=== PATIENT | male | born 1955 | race Caucasian/White ===

== ENCOUNTER 2019-09-03 07:32 | Outpatient (CLI) | payer BC, SELFPAY ==
--- NOTE | ~2019-09-03 | XR_ITS ---
EXAMINATION: XR chest 2V 09/03/2019 07:59 INDICATION: Acute upper respiratory infection. Cough. PROCEDURE: 2 view chest COMPARISON: 06/30/2004 FINDINGS: The lungs are clear. The cardiomediastinal silhouette is within normal limits. There are no pleural effusions. There is no pneumothorax suspected. IMPRESSION: 1: NO ACUTE CARDIOPULMONARY DISEASE. Reviewed, dictated and finalized at location B. OR ACTUARIAL ANALYST
[2019-09-03 08:09] LABS: Basophils Percent Auto 0.7 % (0.2-1.2); Eosinophils Percent Auto 0.3 % (0-4.4); Hematocrit 46.1 % (42.0-52.0); Hemoglobin 14.7 g/dL (14.0-18.0); Immature Granulocyte Absolute 0.01 K/mm3 (0.00-0.031); Immature Granulocyte Percent A 0.2 % (0-0.5); Immature Platelet Fraction Pct 4.7 % (0.9-11.2); Lymphocytes Absolute Auto 0.67 K/mm3 (0.9-3.2); Lymphocytes Percent Auto 11.1 % (18.3-44.2); Mean Corpuscular HGB Conc 31.9 g/dl (32-36); Mean Corpuscular Hemoglobin 28.5 pg (26-34); Mean Corpuscular Volume 89.5 fl (80-100); Mean Platelet Volume 11.1 fl (7.4-10.4); Monocytes Absolute Auto 1.2 K/mm3 (0.1-0.6); Monocytes Percent Auto 19.5 % (2.6-8.5); Neutrophils Absolute Auto 4.1 K/mm3 (1.3-6.7); Neutrophils Percent Auto 68.2 % (45.5-73.1); Platelet Count Result 129 k/mm3 (150-375); Red Blood Count 5.15 M/mm3 (4.6-6.20); Red Cell Distribution Width 14.4 % (11.5-14.5); White Blood Count 6.1 K/mm3 (4.5-10.0)
[2019-09-03 08:16] LABS: Influenza Control Positive
== END 2019-09-03 07:33 | disposition home or self-care (01) ==
PROVIDERS: PCP Internal Medicine; Visit Provider Internal Medicine
DX: J06.9 Acute upper respiratory infection, unspecified (principal); R05 Cough; R69 Illness, unspecified
CPT/HCPCS: 71046; 85025; 85055; 87804

== ENCOUNTER 2019-09-06 09:51 | Outpatient (CLI) | payer BC, SELFPAY ==
[2019-09-06 10:36] LABS: Basophils Percent Auto 0.2 % (0.2-1.2); Eosinophils Percent Auto 0.2 % (0-4.4); Hematocrit 45.3 % (42.0-52.0); Hemoglobin 14.8 g/dL (14.0-18.0); Immature Granulocyte Absolute 0.08 K/mm3 (0.00-0.031); Immature Granulocyte Percent A 0.6 % (0-0.5); Lymphocytes Absolute Auto 0.75 K/mm3 (0.9-3.2); Lymphocytes Percent Auto 5.4 % (18.3-44.2); Mean Corpuscular HGB Conc 32.7 g/dl (32-36); Mean Corpuscular Hemoglobin 28.5 pg (26-34); Mean Corpuscular Volume 87.3 fl (80-100); Mean Platelet Volume 10.5 fl (7.4-10.4); Monocytes Percent Auto 6.8 % (2.6-8.5); Neutrophils Absolute Auto 12.1 K/mm3 (1.3-6.7); Neutrophils Percent Auto 86.8 % (45.5-73.1); Platelet Count Result 145 k/mm3 (150-375); Red Blood Count 5.19 M/mm3 (4.6-6.20); Red Cell Distribution Width 14.5 % (11.5-14.5); White Blood Count 13.9 K/mm3 (4.5-10.0)
[2019-09-06 10:48] LABS: Blood Urea Nitrogen 27 mg/dL (9-20); Calcium 9.4 mg/dL (8.4-10.2); Carbon Dioxide 28 mmol/L (22-30); Chloride 96 mmol/L (98-107); Estimated Glomerular Filt Rate 44; Glucose 169 mg/dL (75-110); Sodium 134 mmol/L (137-145)
[2019-09-06 10:55] LABS: Add Urine Microscopic? YES; Appearance Urine Cloudy (Clear); Bacteria Urine Trace /hpf; Bilirubin Urine Negative (Negative); Blood Urine 1+ (Negative); Color Urine Yellow (Yellow); Glucose Urine UA 3+ mg/dL (Negative); Ketones Urine 1+ mg/dL (Negative); Leukocyte Esterase Ur 2+ LEU/UL (NEGATIVE); Mucus Urine Rare /lpf; Nitrate Urine Negative (Negative); Protein Urine 2+ mg/dL (Negative); Specific Grav Ur 1.027 (1.001-1.035); Squamous Epithelial Cell Urine Rare /hpf (Few); Urobilinogen Urine Negative mg/dL (<2.0); WBC Clumps Urine Present /HPF; WBC Urine >75 /hpf (0-3)
== END 2019-09-06 09:52 | disposition home or self-care (01) ==
PROVIDERS: PCP Internal Medicine; Visit Provider Internal Medicine
DX: R30.0 Dysuria (principal); R39.15 Urgency of urination; J10.1 Influenza due to other identified influenza virus with other respiratory manifestations
CPT/HCPCS: 36415; 80048; 81001; 85025; 87077; 87086; 87088; 87186

== ENCOUNTER → 2020-06-12 10:42 | Outpatient (CLI) | payer BC, SELFPAY ==
--- NOTE | ~2020-06-12 | CT_ITS ---
EXAMINATION: CT abdomen pelvis wo/w con DATE: 06/12/2020 11:33 INDICATION: Microscopic hematuria TECHNIQUE: Computed tomography (CT) of the abdomen and pelvis was performed without and subsequently with 130 cc Omnipaque 350 intravenous contrast. Automated exposure control and iterative reconstructi on technique were employed. Exam dose: 2411.08 mGy-cm total exam DLP. COMPARISON: 04/22/2012 CT renal scan FINDINGS: The lung bases are clear. Normal heart size. No pericardial or pleural effusion. Small sliding hiatal hernia. There is high density within the dependent lumen of the gallbladder fundus, suggesting cholelithiasis , sludge and/or milk of calcium bile. Consider gallbladder ultrasound correlation. No hepatic, splenic, pancreatic or adrenal mass lesion is evident. Status post right nephrectomy. Up to 6.6 cm upper pole left renal cyst. Approximately 5 smaller left renal renal cysts. There are up to 5 left renal nonobstructing calculi, the largest measuring 7 mm. No left ureteral calculus or hydroureteronephrosis. There is an approximately 2.5 x 7 mm linear mobile calcified calculus in the dependent aspect of the urinary bladder. Moderate prostate enlargement. There is diverticulosis of the sigmoid colon; no CT evidence of diverticulitis. No bowel obstruction, bowel wall thickening, pneumatosis or intraperitoneal free air. There is calcification of the abdominal aorta but no abdominal aortic aneurysm. No intraperitoneal or retroperitoneal or pelvic mass lesion or adenopathy or ascites. Multilevel degenerative disc disease of the lumbar spine. Degenerative spurring of the lower thoracic spine. IMPRESSION: Small sliding hiatal hernia Consider gallbladder ultrasound evaluation for high density material within the dependent gallbladder lumen, possibly stones, sludge and/or milk of calcium bile Status post right nephrectomy Multiple nonobstructing left renal calculi Multiple up to 6.6 cm left renal cyst 2.5 x 7 mm linear calcified calculus in the urinary bladder Diverticulosis of the colon Reviewed, dictated and finalized at Location A. Reviewed, dictated and finalized at location A. NING ANALYST IMPRESSION: Small sliding hiatal hernia Consider gallbladder ultrasound evaluation for high density material within the dependent gallbladder lumen, possibly stones, sludge and/or milk of calcium bi le Status post right nephrectomy Multiple nonobstructing left renal calculi Multiple up to 6.6 cm left renal cyst 2.5 x 7 mm linear calcified calculus in the urinary bladder Diverticulosis of the colon
--- NOTE | ~2020-06-12 | XR_ITS ---
EXAMINATION: XR abdomen/kub 1V INDICATION: Microscopic hematuria TECHNIQUE: Supine views of the abdomen were obtained on three radiographs. COMPARISON: CT from today FINDINGS: Surgical clips in the right abdomen are consistent with prior right nephrectomy. Known ston es of the left kidney are obscured by bowel contents. No stones are identified along the expected loc ations of the ureters or bladder. Phleboliths are noted in the pelvis. IMPRESSION: 1. Known left nephrolithiasis not definitely identified. Reviewed, dictated and finalized at location A. DIRECTOR OF CREATIVE STRATEGY
[2020-06-12 11:07] LABS: Estimated Glomerular Filt Rate 51
== END ==
PROVIDERS: PCP Internal Medicine; Visit Provider Urology
DX: R31.29 Other microscopic hematuria (principal)
CPT/HCPCS: 74018; 74178; Q9967

== ENCOUNTER 2020-09-23 07:53 | Outpatient (CLI) | payer BC, SELFPAY ==
--- NOTE | ~2020-09-23 | XR_ITS ---
XR lumbar spine 2-3V 09/23/2020 08:20 Indication: Low back pain Procedure: 3 views lumbar spine Comparison: MRI lumbar spine dated 06/22/2010 Findings: There is mild dextroscoliosis centered at L2. There is disc narrowing at all lumbar levels. There is moderate multilevel facet hypertrophy. No acute fracture or traumatic malalignment. Vertebr al body heights are maintained. No evidence for spondylolisthesis. Sacral foramen are symmetric. Pedi cles intact. Impression: 1: Moderate lumbar spondylosis. Reviewed, dictated and finalized at location A. Impression: 1: Moderate lumbar spondylosis.
== END 2020-09-23 07:54 | disposition home or self-care (01) ==
PROVIDERS: PCP Internal Medicine; Visit Provider Internal Medicine
DX: M54.5 Low back pain (principal); M47.816 Spondylosis without myelopathy or radiculopathy, lumbar region; M41.9 Scoliosis, unspecified
CPT/HCPCS: 72100

== ENCOUNTER 2020-11-01 11:35 | Day surgery (SDC) | payer BC, SELFPAY ==
[2020-11-01] VITALS (10 sets, daily range): BP systolic 110–173; BP diastolic 60–89; PULSE 76–103; RESP 16–18; TEMP 36.3–36.6; O2SAT 94–98
--- NOTE | ~2020-11-01 | CT_ITS ---
EXAMINATION: CT abdomen pelvis wo con DATE: 11/01/2020 12:38 INDICATION: Left flank pain TECHNIQUE: Computed tomography (CT) of the abdomen and pelvis was performed without intravenous contr ast. Automated exposure control and iterative reconstruction technique were employed. Exam dose: 526 .40 mGy-cm total exam DLP. COMPARISON: 06/12/2020 CT abdomen pelvis FINDINGS: The lung bases are clear. Normal heart size. Coronary artery calcifications. No pericardial or pleural effusion. Up to 2.6 x 3.6 cm hyperdense area at gallbladder fundus; differential diagnosis includes gallbladder mass, gallstone. Gallbladder ultrasound examination is recommended for correlation. No hepatic, splenic or pancreatic space-occupying mass lesion. No bile duct or pancreatic duct dilata tion or pancreatic calcification. Normal morphology of the adrenal glands. Status post right nephrectomy. Up to 5.9 cm upper pole left renal cysts. There are several stones at the left ureteropelvic junction (up to 7.6 mm dimension) and very proxima l left ureter (4.6 mm), with moderate left hydronephrosis. There are 2 residual stones in the lower pole of left kidney, one punctate, the other measuring up to approximately 5 mm. There is moderate diffuse thickening of the urinary bladder wall. There is prostate enlargement. There is atherosclerotic calcification of the abdominal aorta but no aneurysm. No intraperitoneal or retroperitoneal or pelvic mass lesion or adenopathy or ascites. Mild diverticulosis of the sigmoid colon; no CT evidence of diverticulitis. No bowel obstruction, bow el wall thickening, pneumatosis or intraperitoneal free air. IMPRESSION: Left renal pelvic and very proximal left ureteral calculi, with associated left hydronep hrosis Lower pole nonobstructive left nephrolithiasis Left renal cysts Chronic nonspecific hyperdensity at the gallbladder fundus, also present on 06/12/2020; consider gall bladder ultrasound examination Mild sigmoid colon diverticulosis; no CT evidence of diverticulitis Reviewed, dictated and finalized at [facility]. Reviewed, dictated and finalized at [facility]. IMPRESSION: Left renal pelvic and very proximal left ureteral calculi, with as sociated left hydronephrosis Lower pole nonobstructive left nephrolithiasis Left renal cysts Chronic nonspecific hyperdensity at the gallbladder fundus, also present on 04/2020; consider gallbladder ultrasound examination Mild sigmoid colon diverticulosis; no CT evidence of diverticulitis
--- NOTE | ~2020-11-01 | XR_ITS ---
XR abdomen/kub 1V DATE: 11/01/2020 12:44 INDICATION: Left flank pain TECHNIQUE: AP projection, 2 views COMPARISON: 11/01/2020 CT abdomen pelvis noncontrast examination FINDINGS: The multiple stones in the left renal pelvis and very proximal left ureter as well as lower pole of left kidney are radiographically occult. Postsurgical changes of the right abdomen. No evidence of bowel obstruction. No visceromegaly is evident. IMPRESSION: Radiographically occult stones at lower pole left kidney as well as left renal pelvis and very proximal left ureter Reviewed, dictated and finalized at [facility]. Reviewed, dictated and finalized at [facility].
--- NOTE | ~2020-11-01 | XR_ITS ---
EXAMINATION: XR retrograde pyelo w/stent LT DATE: 11/01/2020 16:39 INDICATION: Left flank pain requiring left ureteral stent placement. TECHNIQUE: 5 fluoroscopic images of the abdomen and pelvis were obtained during procedure performed izabela Maldonado. Radiologist was not present for the imaging or procedure. The amount of fluoroscopy olimpia e used during this procedure was 0.4 minutes. 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 Subsequent images demonstrate retrogra de contrast injection into the left kidney and placement of a left internal ureteral stent with loops formed in the bladder and left renal pelvis. Cholecystectomy clips in right upper quadrant. A couple likely dropped clips in the right lower quadrant and left hemipelvis. IMPRESSION: 1. Proximal left ureteral stones. 2. Placement of a left internal ureteral stent in expected position with loops formed in the left rainer al pelvis and in the bladder. Reviewed, dictated and finalized at location [facility]. IMPRESSION: 1. Proximal left ureteral stones. 2. Placement of a left internal ureteral stent in expected position with loops formed in the left renal pelvis and in the bladder.
--- NOTE | 2020-11-01 11:58 | ED.BACK ---
HPI - Back Pain/Injury General Chief Complaint: Abdominal Pain Stated Complaint: poss kidney stone Time Seen by Provider: 11/01/20 11:52 Source: patient and RN notes reviewed Mode of arrival: ambulatory Limitations: no limitations History of Present Illness HPI Narrative: This is a 65 year old male with history of DM, kidney stones who presents for evaluation of left lower back pain. This pain started 2 hours ago and it has been constant. He describes it as dull aching pain. He denies pain radiating. It is associated with nausea and vomiting. He thinks it may be a kidney stone. He denies fever or chills . He also denies urinary symptoms. He took Tylenol 1 g an hour ago without relief of his pain. Pain is currently 5/10. Pertinent past history: kidney stones Exacerbating factors: deep breaths Relieving factors: none Treatments prior to arrival: acetaminophen Related Data Allergies Allergy/AdvReac Type Severity Reaction Status Date / Time No Known Allergies Allergy Verified 11/01/20 11:47 Review of Systems Review of Systems: All systems reviewed & are unremarkable except as noted in HPI and below PMFSH Past Medical History Medical History Benign essential hypertension BMI 33.0-33.9,adult BMI 34.0-34.9,adult CKD (chronic kidney disease) Controlled diabetes mellitus with hyperglycemia, with long-term current use of insulin Cough Dehydration Dysuria Elevated PSA Elevated serum creatinine Encounter for long-term current use of medication Encounter for routine adult health examination without abnormal findings Encounter for special screening examination for neoplasm of prostate Family history of prostate cancer HTN (hypertension) Hx of colonic polyps Hx of mitral valve prolapse Hx of unilateral nephrectomy Hyperlipidemia Hypothyroidism (acquired) Influenza A Itchy skin Low back pain On intermediate designer drug therapy URI (upper respiratory infection) Urinary urgency Vitamin D deficiency Weight loss, intentional Surgical History Surgical History H/O kidney removal H/O right nephrectomy Family History Family History Mother Diabetes mellitus Family history of diabetes mellitus in first degree relative Sibling Malignant neoplasm of prostate Other Family history of cardiovascular disease Social History Social History Smoking status: Never smoker Alcohol intake: never Exam Const: General: no acute distress and alert Orientation/consciousness: patient oriented x3 Eyes: EOM: EOMs intact bilaterally Resp: Effort & Inspection: normal respiratory effort and no retractions Auscultation: clear to auscultation bilaterally Cardio: Rate: regular rate Rhythm: regular rhythm Heart sounds: no murmurs GI: GI Palp: Yes Soft to palpation, Yes Tenderness to palpation present (GI) (LL flank) and No Guarding due to palpation present (GI) Auscultation: normal bowel sounds : General: Yes no CVA tenderness Skin: General skin exam: normal color Rashes: no rashes Neuro: General: patient oriented x3, moves all extremities and CN's II-XI intact bilaterally Course Consultations Consultation #1: I Discussed case with Dr. Mckoy. HE states he will likely take patient to OR later for stent placement due to only having 1 kidney Date: 11/01/20 Time: 14:16 Consultation #2: I discussed with shane stinson who will admit to hospitalist for observation Date: 11/01/20 Time: 14:36 Vital Signs Vital signs: Vital Signs Temperature 97.8 F 11/01/20 11:43 Pulse Rate 98 11/01/20 11:43 Respiratory Rate 18 11/01/20 11:43 Blood Pressure 173/89 H 11/01/20 11:43 Pulse Oximetry 96 11/01/20 11:43 Temperature 97.4 F L 11/01/20 16:43 Pulse Rate 76 11/01/20 17:47 Respiratory Rate
[2020-11-01 12:13] LABS: Basophils Absolute Auto 0.1 K/mm3 (0.0-0.1); Basophils Percent Auto 0.7 % (0.2-1.2); Eosinophils Absolute Auto 0.2 K/mm3 (0-0.3); Eosinophils Percent Auto 1.9 % (0-4.4); Hematocrit 41.7 % (42.0-52.0); Hemoglobin 14.3 g/dL (14.0-18.0); Immature Granulocyte Absolute 0.04 K/mm3 (0.00-0.031); Immature Granulocyte Percent A 0.4 % (0-0.5); Lymphocytes Absolute Auto 1.37 K/mm3 (0.9-3.2); Lymphocytes Percent Auto 13.3 % (18.3-44.2); Mean Corpuscular HGB Conc 34.3 g/dl (32-36); Mean Corpuscular Hemoglobin 29.6 pg (26-34); Mean Corpuscular Volume 86.3 fl (80-100); Mean Platelet Volume 11.2 fl (7.4-10.4); Monocytes Absolute Auto 0.9 K/mm3 (0.1-0.6); Monocytes Percent Auto 8.6 % (2.6-8.5); Neutrophils Absolute Auto 7.7 K/mm3 (1.3-6.7); Neutrophils Percent Auto 75.1 % (45.5-73.1); Platelet Count Result 156 k/mm3 (150-375); Red Blood Count 4.83 M/mm3 (4.6-6.20); Red Cell Distribution Width 12.8 % (11.5-14.5); White Blood Count 10.3 K/mm3 (4.5-10.0)
[2020-11-01 12:21] LABS: Alanine Aminotransferase 27 U/L (4-50); Albumin Level 4.2 g/dL (3.5-5.1); Alkaline Phosphatase 75 U/L (38-126); Anion Gap 6 mmol/L (8-16); Aspartate Amino Transferase 34 U/L (17-59); Bilirubin,Total 0.8 mg/dL (0.2-1.3); Blood Urea Nitrogen 25 mg/dL (9-20); Calcium 9.3 mg/dL (8.4-10.2); Carbon Dioxide 26 mmol/L (22-30); Chloride 106 mmol/L (98-107); Estimated CRCL calculation 54 ml/min; Estimated Glomerular Filt Rate 47; Glucose 159 mg/dL (75-110); Lipase 361 U/L (23-300); Potassium 4.1 mmol/L (3.4-5.0); Sodium 138 mmol/L (137-145)
[2020-11-01] MEDS: ONDANSETRON INJ 4 MG/2 ML VIAL IV PUSH (12:21)
[2020-11-01] MEDS: HYDROmorphone HCL INJ (*CRX) 1 MG/ML SYR 0.5 MG IV PUSH (12:21)
[2020-11-01 12:24] LABS: Add Urine Microscopic? YES; Appearance Urine Cloudy (Clear); Bilirubin Urine Negative (Negative); Blood Urine 3+ (Negative); Color Urine Yellow (Yellow); Glucose Urine UA Negative (Negative); Ketones Urine Negative (Negative); Leukocyte Esterase Ur Trace LEU/UL (Negative); Mucus Urine Rare /lpf; Nitrate Urine Negative (Negative); Protein Urine 1+ mg/dL (Negative); Urobilinogen Urine Negative mg/dL (<2.0)
--- NOTE | 2020-11-01 14:39 | WPDANESEPP ---
Anes - Eval Pre Procedure Procedure: Cystoscopy Date/Time: 11/01/20 14:39 Pre Op Diagnosis: poss kidney stone Patient Data Age: 65 Gender: M Height: 1.78 m Weight: 108 kg Last Vital Signs Temp 36.6 C 11/01/20 11:43 Pulse 100 11/01/20 13:43 Resp 18 11/01/20 13:43 BP 131/79 11/01/20 13:43 Pulse Ox 94 11/01/20 13:43 Allergies Allergy/AdvReac Type Severity Reaction Status Date / Time No Known Allergies Allergy Verified 11/01/20 11:47 Home Medications Medication Instructions Recorded Confirmed Type rosuvastatin 40 mg tablet 40 mg PO DAILY #90 tablet 12/24/19 09/23/20 Rx levothyroxine 100 mcg tablet 100 mcg PO QAM #90 tablet 01/14/20 09/23/20 Rx flash glucose sensor #6 each 02/04/20 09/23/20 Rx losartan 100 mg tablet 100 mg PO DAILY #90 tablet 02/18/20 09/23/20 Rx pen needle, diabetic 32 gauge x #100 ea 06/16/20 09/23/20 Rx /32 metformin 1,000 mg tablet See Rx Instructions .ROUTE 09/22/20 09/23/20 Rx .COMPLEX #180 tablet semaglutide 1 mg/dose (2 mg/1.5 1 mg SUBCUT WEEKLY #9 ml 10/08/20 Rx mL) subcutaneous pen injector insulin glargine U-300 conc 300 35 unit SUB-Q QPM #8 syr 10/14/20 Rx unit/mL (1.5 mL) subcutaneous pen Laboratory Tests 11/01/20 11/01/20 11/01/20 12:04 12:04 12:12 WBC 10.3 K/mm3 H K/mm3 (4.5-10.0) RBC 4.83 M/mm3 M/mm3 (4.6-6.20) Hgb 14.3 g/dL g/dL (14.0-18.0) Hct 41.7 % L % (42.0-52.0) MCV 86.3 fl fl (80-100) MCH 29.6 pg pg (26-34) MCHC 34.3 g/dl g/dl (32-36) RDW 12.8 % % (11.5-14.5) Plt Count 156 k/mm3 k/mm3 (150-375) MPV 11.2 fl H fl (7.4-10.4) Immature Gran % (Auto) 0.4 % % (0-0.5) Neut % (Auto) 75.1 % H % (45.5-73.1) Lymph % (Auto) 13.3 % L % (18.3-44.2) [place] % (Auto) 8.6 % H % (2.6-8.5) Eos % (Auto) 1.9 % % (0-4.4) Baso % (Auto) 0.7 % % (0.2-1.2) Lymph # (Auto) 1.37 K/mm3 K/mm3 (0.9-3.2) [place] # (Auto) 0.9 K/mm3 H K/mm3 (0.1-0.6) Eos # (Auto) 0.2 K/mm3 K/mm3 (0-0.3) Baso # (Auto) 0.1 K/mm3 K/mm3 (0.0-0.1) Abs Immat Gran (auto) 0.04 K/mm3 H K/mm3 (0.00-0.031) Absolute Neuts (auto) 7.7 K/mm3 H K/mm3 (1.3-6.7) Absolute Nucleated RBC 0.0 K/mm3 K/mm3 (0.0-0.012) Nucleated RBC % 0.0 % % (0.0-0.2) Sodium 138 mmol/L mmol/L (137-145) Potassium 4.1 mmol/L mmol/L (3.4-5.0) Chloride 106 mmol/L mmol/L (98-107) Carbon Dioxide 26 mmol/L mmol/L (22-30) Anion Gap 6 mmol/L L mmol/L (8-16) BUN 25 mg/dL H mg/dL (9-20) Creatinine 1.50 mg/dL H mg/dL (0.7-1.3) Estim Creat Clear Calc 54 ml/min ml/min Estimated GFR 47 L (59 - ) Glucose 159 mg/dL H mg/dL (75-110) Calcium 9.3 mg/dL mg/dL (8.4-10.2) Total Bilirubin 0.8 mg/dL mg/dL (0.2-1.3) AST 34 U/L U/L (17-59) ALT 27 U/L U/L (4-50) Alkaline Phosphatase 75 U/L U/L (38-126) Total Protein 7.0 g/dL g/dL (6.3-8.2) Albumin 4.2 g/dL g/dL (3.5-5.1) Lipase 361 U/L H U/L (23-300) Urine Color Yellow (Yellow) Urine Appearance Cloudy H (Clear) Urine pH 6.0 (5.0-9.0) Ur Specific [place] 1.010 (1.001-1.035) Urine Protein 1+ mg/dL H mg/dL (Negative) Urine Glucose (UA) Negative mg/dL mg/dL (Negative) Urine Ketones Negative mg/dL mg/dL (Negative) Ur Blood (Man) 3+ H (Negative) Urine Nitrate Negative (Negative) Urine Bilirubin Negative (Negative) Urine Urobilinogen Negative mg/dL mg/dL (<2.0) Leukocyte Esterase Rfl Trace SHAMIKA/UL H SHAMIKA/UL (Negative) Urine RBC 11-20 /hpf H /hpf (0-2) Urine WBC
[2020-11-01] MEDS: LACTATED RINGERS 1,000 ML 125 ML IV CONT (15:33)
--- NOTE | 2020-11-01 15:55 | WPDANESEPPF ---
Anes - Initial Pre Proc Eval Procedure: Operation Date: 11/01/20 16:00 Proposed Procedures p Cysto, RPG, Stone Ext, Stent Placement - Ray Maldonado MD Date/Time: 11/01/20 15:55 Surgeon: Ray Maldonado MD Pre Op Diagnosis: poss kidney stone Patient Data Age: 65 Gender: M Height: 1.78 m Weight: 108 kg Last Vital Signs Temp 36.6 C 11/01/20 11:43 Pulse 103 H 11/01/20 15:41 Resp 16 11/01/20 15:41 BP 132/74 11/01/20 15:41 Pulse Ox 96 11/01/20 15:41 Allergies Allergy/AdvReac Type Severity Reaction Status Date / Time No Known Allergies Allergy Verified 11/01/20 11:47 Home Medications Medication Instructions Recorded Confirmed Type rosuvastatin 40 mg tablet 40 mg PO DAILY #90 tablet 12/24/19 09/23/20 Rx levothyroxine 100 mcg tablet 100 mcg PO QAM #90 tablet 01/14/20 09/23/20 Rx flash glucose sensor #6 each 02/04/20 09/23/20 Rx losartan 100 mg tablet 100 mg PO DAILY #90 tablet 02/18/20 09/23/20 Rx pen needle, diabetic 32 gauge x #100 ea 06/16/20 09/23/20 Rx /32 metformin 1,000 mg tablet See Rx Instructions .ROUTE 09/22/20 09/23/20 Rx .COMPLEX #180 tablet semaglutide 1 mg/dose (2 mg/1.5 1 mg SUBCUT WEEKLY #9 ml 10/08/20 Rx mL) subcutaneous pen injector insulin glargine U-300 conc 300 35 unit SUB-Q QPM #8 syr 10/14/20 Rx unit/mL (1.5 mL) subcutaneous pen Laboratory Tests 11/01/20 11/01/20 11/01/20 12:04 12:04 12:12 WBC 10.3 K/mm3 H K/mm3 (4.5-10.0) RBC 4.83 M/mm3 M/mm3 (4.6-6.20) Hgb 14.3 g/dL g/dL (14.0-18.0) Hct 41.7 % L % (42.0-52.0) MCV 86.3 fl fl (80-100) MCH 29.6 pg pg (26-34) MCHC 34.3 g/dl g/dl (32-36) RDW 12.8 % % (11.5-14.5) Plt Count 156 k/mm3 k/mm3 (150-375) MPV 11.2 fl H fl (7.4-10.4) Immature Gran % (Auto) 0.4 % % (0-0.5) Neut % (Auto) 75.1 % H % (45.5-73.1) Lymph % (Auto) 13.3 % L % (18.3-44.2) [place] % (Auto) 8.6 % H % (2.6-8.5) Eos % (Auto) 1.9 % % (0-4.4) Baso % (Auto) 0.7 % % (0.2-1.2) Lymph # (Auto) 1.37 K/mm3 K/mm3 (0.9-3.2) [place] # (Auto) 0.9 K/mm3 H K/mm3 (0.1-0.6) Eos # (Auto) 0.2 K/mm3 K/mm3 (0-0.3) Baso # (Auto) 0.1 K/mm3 K/mm3 (0.0-0.1) Abs Immat Gran (auto) 0.04 K/mm3 H K/mm3 (0.00-0.031) Absolute Neuts (auto) 7.7 K/mm3 H K/mm3 (1.3-6.7) Absolute Nucleated RBC 0.0 K/mm3 K/mm3 (0.0-0.012) Nucleated RBC % 0.0 % % (0.0-0.2) Sodium 138 mmol/L mmol/L (137-145) Potassium 4.1 mmol/L mmol/L (3.4-5.0) Chloride 106 mmol/L mmol/L (98-107) Carbon Dioxide 26 mmol/L mmol/L (22-30) Anion Gap 6 mmol/L L mmol/L (8-16) BUN 25 mg/dL H mg/dL (9-20) Creatinine 1.50 mg/dL H mg/dL (0.7-1.3) Estim Creat Clear Calc 54 ml/min ml/min Estimated GFR 47 L (59 - ) Glucose 159 mg/dL H mg/dL (75-110) Calcium 9.3 mg/dL mg/dL (8.4-10.2) Total Bilirubin 0.8 mg/dL mg/dL (0.2-1.3) AST 34 U/L U/L (17-59) ALT 27 U/L U/L (4-50) Alkaline Phosphatase 75 U/L U/L (38-126) Total Protein 7.0 g/dL g/dL (6.3-8.2) Albumin 4.2 g/dL g/dL (3.5-5.1) Lipase 361 U/L H U/L (23-300) Urine Color Yellow (Yellow) Urine Appearance Cloudy H (Clear) Urine pH 6.0 (5.0-9.0) Ur Specific [place] 1.010 (1.001-1.035) Urine Protein 1+ mg/dL H mg/dL (Negative) Urine Glucose (UA) Negative mg/dL mg/dL (Negative) Urine Ketones Negative mg/dL mg/dL (Negative) Ur Blood (Man) 3+ H (Negative) Urine Nitrate Negative (Negative) Urine Bilirubin Negative (Negative) Urine Urobilinogen Negative mg/dL m
[2020-11-01] MEDS: LACTATED RINGERS 1,000 ML 30 ML IV CONT (16:00)
--- NOTE | 2020-11-01 16:08 | WPDURCON ---
Assessment and Plan Additional Plan left ureteral stone in a solitary kidney system He will need a left ureteral stent. We discussed the risks of the stent colic and infection. He will receive a dose of antibiotics. He will have follow up with Dr. Anderson for definitive stone management. Urology Consult Note HPI Date Seen: 11/01/20 Requesting Physician: Ray Maldonado MD Primary Care Provider: Rafael Guajardo MD Consult Narrative Narrative: Nico Aggarwal is a 65 year old male with a left ureteral stone and solitary kidney. Review of Systems Review of Systems: All systems reviewed & are unremarkable except as noted in HPI and below PMFSH Past Medical History Medical History Benign essential hypertension BMI 33.0-33.9,adult BMI 34.0-34.9,adult CKD (chronic kidney disease) Controlled diabetes mellitus with hyperglycemia, with long-term current use of insulin Cough Dehydration Dysuria Elevated PSA Elevated serum creatinine Encounter for long-term current use of medication Encounter for routine adult health examination without abnormal findings Encounter for special screening examination for neoplasm of prostate Family history of prostate cancer HTN (hypertension) Hx of colonic polyps Hx of mitral valve prolapse Hx of unilateral nephrectomy Hyperlipidemia Hypothyroidism (acquired) Influenza A Itchy skin Low back pain On fpc drug therapy URI (upper respiratory infection) Urinary urgency Vitamin D deficiency Weight loss, intentional Surgical History Surgical History H/O kidney removal H/O right nephrectomy Family History Family History Mother Diabetes mellitus Family history of diabetes mellitus in first degree relative Sibling Malignant neoplasm of prostate Other Family history of cardiovascular disease Social History Social History Smoking status: Never smoker Alcohol intake: never Meds Home Medications and Allergies Home Medications Medication Instructions Recorded Confirmed Type rosuvastatin 40 mg tablet 40 mg PO DAILY #90 tablet 12/24/19 09/23/20 Rx levothyroxine 100 mcg tablet 100 mcg PO QAM #90 tablet 01/14/20 09/23/20 Rx flash glucose sensor #6 each 02/04/20 09/23/20 Rx losartan 100 mg tablet 100 mg PO DAILY #90 tablet 02/18/20 09/23/20 Rx pen needle, diabetic 32 gauge x #100 ea 06/16/20 09/23/20 Rx metformin 1,000 mg tablet See Rx Instructions .ROUTE 09/22/20 09/23/20 Rx .COMPLEX #180 tablet semaglutide 1 mg/dose (2 mg/1.5 1 mg SUBCUT WEEKLY #9 ml 10/08/20 Rx mL) subcutaneous pen injector insulin glargine U-300 conc 300 35 unit SUB-Q QPM #8 syr 10/14/20 Rx unit/mL (1.5 mL) subcutaneous pen Allergies Allergy/AdvReac Type Severity Reaction Status Date / Time No Known Allergies Allergy Verified 11/01/20 11:47 Vital Signs Vital Signs - 24 hr 11/01/20 11:43 11/01/20 12:44 11/01/20 13:43 Temperature 36.6 C Pulse Rate 98 94 100 Respiratory Rate 18 18 18 Blood Pressure 173/89 H 131/79 Pulse Oximetry 96 96 94 11/01/20 15:07 11/01/20 15:41 Temperature Pulse Rate 103 H 103 H Respiratory Rate 16 16 Blood Pressure 132/74 132/74 Pulse Oximetry 96 96 Exam Const: General: cooperative and healthy appearing HENMT: Ears: hearing grossly normal bilaterally Eyes: General: appearance normal, both eyes and all related structures Neck: Neck: normal visual inspection Resp: Effort & Inspection: normal respiratory effort and able to speak in complete sentences GI: Inspection: normal to inspection Skin: General skin exam: normal color and no rashes or lesions noted Neuro: General: oriented to person, oriented to place and oriented to time Psych: Appearance: grossly normal and well kempt Results Labs
--- NOTE | 2020-11-01 16:19 | WPDANESEFPP ---
Anes - Eval Final PreProcedure Day of Procedure 11/01/20 16:19 Patient weight: obese Heart: regular rate and rhythm Lungs: clear to auscultation and normal air movement Airway: Mallampati scale class II Neurological: alert and oriented Last oral intake: >/= 8 hours ASA classification: III Emergent: no Anesthetic plan: proceed Anesthesia type and monitoring: general GIVS and LMA Informed Consent: The patient's anesthetic plan and its attendant risks and benefits were discussed with the patient/family/POA. Questions were solicited and answers provided to the satisfaction of the patient/family/POA.
[2020-11-01] MEDS: ceFAZolin SODIUM 1 GM VIAL 2 GM IV PUSH (16:22)
--- NOTE | 2020-11-01 16:43 | P.OP_ITS ---
Procedure Note - Detailed Date of procedure: 11/01/20 Pre-op diagnosis: poss kidney stone left ureter stone Post-op diagnosis: same Procedure performed: cystoscopy with left retrograde pyelogram and left ureteral stent placement Description of procedure: The patient was brought to the operating room in stable condition. He was placed under anesthesia. He received antibiotic prophylaxis with Ancef. He was placed in lithotomy position. He was prepped and draped in sterile fashion. A 22 aust[place]ian cystoscope was placed through the urethra into the bladder. The bladder was examined. No abnormality was seen. The left ureter orifice was visualized and cannulated with a Mendoza wire. An open ended catheter was placed. A retrograde pyelogram was performed. There was hydronephrosis present. The wire was placed into the upper pole of the kidney. The stent was placed over the wire. A 6 [place] variable length stent was placed. A good curl was noted in the bladder under direct vision and in the renal pelvis under fluoroscopy. The bladder was drained. Local anesthesia was placed. Final x-ray images were taken showing the stent in correct position. He was then brought to the recovery room in stable condition. Implants: 6 [place] variable length ureter stent Anesthesia: MAC Surgeon: Ray Maldonado MD Estimated blood loss (mL): 0 Drains: No Packing: No Pathology: none sent Complications: No immediate complications Condition: stable Disposition: PACU Findings: Good placement of stent
[2020-11-01 17:16] LABS: Glucose Point of Care 83 (65-105)
--- NOTE | 2020-11-01 17:58 | SUR.PHASEII ---
1755- Pt up to restroom to void and get dressed. Denies pain or nausea. 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 Discharge instructions given to pt and home meds reviewed. all questions answered.
--- NOTE | 2020-11-01 18:25 | PM.EVENT ---
Event Note Event Note Event Note: Patient was initially going to be admitted to the hospitalist service overnight for observation, with surgery to be done the following morning as he apparently ate breakfast today. Ultimately he was able to go to the OR this afternoon for cystoscopy and stent placement and was discharged by the urologist from PACU. He was not seen or evaluated by myself or the hospitalist service.
== END 2020-11-01 17:55 | disposition home or self-care (01) ==
LOC: ANHED 14:38 → ANHSURGERY 15:05
PROVIDERS: Emergency Provider General Practice; PCP Internal Medicine; Visit Provider Urology
PROC: (CPT 52352; principal; 2020-11-01 16:00)
DX: N13.2 Hydronephrosis with renal and ureteral calculous obstruction (principal); Z90.5 Acquired absence of kidney; E11.22 Type 2 diabetes mellitus with diabetic chronic kidney disease; I12.9 Hypertensive chronic kidney disease with stage 1 through stage 4 chronic kidney disease, or unspecified chronic kidney disease; N18.9 Chronic kidney disease, unspecified; Z79.4 Long term (current) use of insulin; E78.5 Hyperlipidemia, unspecified; E03.9 Hypothyroidism, unspecified; E66.9 Obesity, unspecified; Z68.34 Body mass index [BMI] 34.0-34.9, adult
CPT/HCPCS: 52332; 36415; 74018; 74176; 74420; 80053; 81001; 82948; 83690; 85025; 87086; 96374; 96375; 99285; A9270; C1758; C1769; C2617; J0690; J1170; J2405; J2704; J3010; J7120; Q9966

== ENCOUNTER 2020-11-13 09:29 | Outpatient (CLI) | payer BC, SELFPAY ==
--- NOTE | ~2020-11-13 | XR_ITS ---
EXAMINATION: XR abdomen/kub 1V EXAM DATE: 11/13/2020 09:46 INDICATION: Left ureteral stone, left-sided flank pain. Right nephrectomy. TECHNIQUE: Frontal projection of the upper abdomen, frontal projection lower abdomen/pelvis for inter pretation. Comparison is made to prior examination from 11/01/2020. FINDINGS: There is a left-sided double-J ureteral stent in position. No suspicious soft tissue calci fications identified. Surgical clips from right nephrectomy. Mild lumbar dextroscoliosis. Expected am ount of colonic stool. Nonobstructive bowel gas pattern. Lung bases unremarkable. IMPRESSION: Left ureteral stent in position. Reviewed, dictated and finalized at location [facility].
== END 2020-11-13 09:30 | disposition home or self-care (01) ==
LOC: ANHIMG 09:33
PROVIDERS: PCP Internal Medicine; Visit Provider Urology
DX: N20.1 Calculus of ureter (principal); Z96.0 Presence of urogenital implants
CPT/HCPCS: 74018

== ENCOUNTER → 2020-11-21 07:58 | Outpatient (CLI) | payer BC, SELFPAY ==
--- NOTE | ~2020-11-21 | US_ITS ---
US abdomen limited DATE: 11/21/2020 08:35 INDICATION: Congenital malformation of the gallbladder TECHNIQUE: Real-time imaging of liver, pancreas, gallbladder areas COMPARISON: 11/01/[address] abdomen pelvis FINDINGS: There is hepatic steatosis. No hepatic space-occupying mass lesion is evident. Normal hepat opedal portal venous flow direction. The pancreas is largely obscured by overlying bowel gas. The common bile duct measures 5 mm, within normal range. There is sludge in the dependent aspect of the gallbladder no gallbladder wall thickening is evident. Negative sonographic Salter's sign. IMPRESSION: Gallbladder sludge Hepatic steatosis Reviewed, dictated and finalized at [facility]. Reviewed, dictated and finalized at [facility].
== END ==
PROVIDERS: PCP Internal Medicine; Visit Provider Internal Medicine
DX: Q44.1 Other congenital malformations of gallbladder (principal); K76.0 Fatty (change of) liver, not elsewhere classified
CPT/HCPCS: 76705

== ENCOUNTER → 2020-11-28 08:11 | Outpatient (CLI) | payer BC, SELFPAY ==
--- NOTE | ~2020-11-28 | XR_ITS ---
EXAMINATION: CT abdomen pelvis wo con, XR abdomen/kub 1V DATE: 11/28/2020 08:39 INDICATION: Renal stone TECHNIQUE: 1. Computed tomography (CT) of the abdomen and pelvis was performed without intravenous contrast. Aut omated exposure control and iterative reconstruction technique were employed. The dose-length product was 1093.98 mGy-cm. 2. AP view of the abdomen and pelvis was obtained on 2 radiographs. COMPARISON: KUB dated 11/13/2020, CT dated 11/01/2020 and ultrasound dated 11/21/2020 FINDINGS: CT: Lung bases are clear. Heart size is normal. Atherosclerotic coronary artery catheter location. No per icardial or pleural effusion. Interval change in configuration of the combination of sludge and galls tones collecting at the dependent fundus of the otherwise normal gallbladder. Liver, spleen, pancreas and bilateral adrenal glands are normal. Status post right nephrectomy with surgical clips at the ri t renal fossa. A couple left renal cysts the largest measuring 6.2 cm cyst at the upper pole of the left kidney. Interval placement of a left internal ureteral stent with loops formed in upper pole ca lyx of the left kidney and in the bladder. There is persistent mild left hydronephrosis. There are co uple stones at a lower pole calyx of the left kidney measuring approximately 7 mm and 4-5 mm. No ston es seen along the course of the internal ureteral stent in the left ureter. Bladder is normal. Prosta tomegaly. There is mild colonic diverticulosis with a sigmoid predominance. There is no adjacent inf lammatory change to suggest diverticulitis. No bowel obstruction. The appendix is not visualized. No pericecal inflammatory change to suggest acute appendicitis. No free intraperitoneal gas or fluid. No pathologically enlarged abdominal or pelvic lymphadenopathy. Moderate lumbar spondylosis. KUB: The stones at the lower pole of the left kidney are nearly indistinguishable. No stones seen along th e course of the left internal ureteral stent which is in expected position. Surgical clips in the abd omen and pelvis related to prior right nephrectomy. IMPRESSION: 1. Interval placement of a left internal ureteral stent with persistent mild left hydronephrosis and a couple 7 mm and 4-5 mm stones in a lower pole calyx. 2. Status post right nephrectomy. 3. Cholelithiasis and sludge in the normal gallbladder. 4. Mild diverticulosis. 5. Prostatomegaly. Reviewed, dictated and finalized at location [facility]. IMPRESSION: 1. Interval placement of a left internal ureteral stent with persistent mild le ft hydronephrosis and a couple 7 mm and 4-5 mm stones in a lower pole calyx. 2. Status post right nephrectomy. 3. Cholelithiasis and sludge in the normal gallbladder. 4. Mild diverticulosis. 5. Prostatomegaly.
== END ==
PROVIDERS: Visit Provider Urology
DX: N20.0 Calculus of kidney (principal); Z96.0 Presence of urogenital implants; Z90.5 Acquired absence of kidney; K80.20 Calculus of gallbladder without cholecystitis without obstruction; K83.9 Disease of biliary tract, unspecified; K57.90 Diverticulosis of intestine, part unspecified, without perforation or abscess without bleeding; N40.0 Benign prostatic hyperplasia without lower urinary tract symptoms
CPT/HCPCS: 74018; 74176

== ENCOUNTER 2021-01-30 13:30 | Outpatient (CLI) | payer BC, SELFPAY ==
--- NOTE | 2021-01-30 14:19 | ECG_ITS ---
Measurements Intervals [place] Rate: 82 P: 26 HI: 203 QRS: -9 QRSD: 120 T: 78 QT: 353 QTc: 414 Interpretive Statements SINUS RHYTHM BORDERLINE AV CONDUCTION DELAY INTRAVENTRICULAR CONDUCTION DELAY POOR R WAVE PROGRESSION, ANTERIOR LEADS INFERIOR INFARCT, AGE INDETERMINATE ABNORMAL ECG Electronically Signed On 01-30-2021 15:38:56 CDT by Esdras Leavitt D.O.
[2021-01-30 15:05] LABS: Anion Gap 14 mmol/L (8-16); Blood Urea Nitrogen 31 mg/dL (9-20); Carbon Dioxide 24 mmol/L (22-30); Chloride 101 mmol/L (98-107); Estimated Glomerular Filt Rate 55; Glucose 186 mg/dL (65-110); Potassium 4.1 mmol/L (3.4-5.0); Sodium 139 mmol/L (137-145)
== END 2021-01-30 13:31 | disposition home or self-care (01) ==
PROVIDERS: Anesthesiology; PCP Internal Medicine; Visit Provider Urology
DX: Z01.818 Encounter for other preprocedural examination (principal); N20.0 Calculus of kidney; E11.9 Type 2 diabetes mellitus without complications; I45.89 Other specified conduction disorders; I25.5 Ischemic cardiomyopathy
CPT/HCPCS: 36415; 80048; 87086; 93005

== ENCOUNTER 2021-02-03 00:39 | Day surgery (SDC) | payer BC, SELFPAY ==
[2021-01-28 14:19] VITALS: BMI 34.0
[2021-02-03] VITALS (9 sets, daily range): BP systolic 121–140; BP diastolic 68–84; PULSE 58–74; RESP 14–18; TEMP 36.2–36.6; O2SAT 96–99
--- NOTE | ~2021-02-03 | XR_ITS ---
EXAMINATION: XR retrograde pyelo w/stent LT DATE: 02/03/2021 08:16 INDICATION: Left renal stone. TECHNIQUE: 5 intraoperative fluoroscopic views of the abdomen and pelvis were obtained. I was not pre sent. Fluoroscopy exposure time was 28 seconds. COMPARISON: CT abdomen and pelvis 11/28/2020 FINDINGS: The left-sided retrograde pyelogram demonstrates moderate left hydronephrosis. The final im ages demonstrate a left internal ureteral stent in expected position. There are surgical clips from r ight nephrectomy. IMPRESSION: 1. Moderate left hydronephrosis. Left internal ureteral stent in expected position. Reviewed, dictated and finalized at location [facility]. IMPRESSION: 1. Moderate left hydronephrosis. Left internal ureteral stent in expected posit ion.
[2021-02-03 06:38] LABS: Glucose Point of Care 123 mg/dl (65-105)
--- NOTE | 2021-02-03 06:40 | WPDANESEPPF ---
Anes - Initial Pre Proc Eval Procedure: Operation Date: 02/03/21 07:30 Proposed Procedures p Cystoscopy, Left Retrograde Pyelogram, Left Ureteroscopy, with Stone Extraction - Mohamud Anderson MD s Holmium Laser Procedure with Stent - Mohamud Anderson MD Date/Time: 02/03/21 06:40 Surgeon: Mohamud Anderson MD Pre Op Diagnosis: Left renal stone Patient Data Age: 65 Gender: M Height: 1.79 m Weight: 113 kg Last Vital Signs Temp 36.6 C 02/03/21 06:22 Pulse 74 02/03/21 06:22 Resp 16 02/03/21 06:22 BP 121/68 02/03/21 06:22 Pulse Ox 97 02/03/21 06:22 Allergies Allergy/AdvReac Type Severity Reaction Status Date / Time No Known Allergies Allergy Verified 02/03/21 06:23 Home Medications Medication Instructions Recorded Confirmed Type losartan 100 mg tablet 100 mg PO DAILY #90 tablet 02/18/20 02/03/21 Rx pen needle, diabetic 32 gauge x #100 ea 06/16/20 12/10/20 Rx metformin 1,000 mg tablet See Rx Instructions .ROUTE 09/22/20 02/03/21 Rx .COMPLEX #180 tablet flash glucose sensor #6 each 12/09/20 12/10/20 Rx semaglutide 1 mg/dose (2 mg/1.5 See Rx Instructions .ROUTE 12/30/20 02/03/21 Rx mL) subcutaneous pen injector .COMPLEX #9 ml rosuvastatin 40 mg tablet See Rx Instructions .ROUTE 01/06/21 02/03/21 Rx .COMPLEX #90 tablet levothyroxine 100 mcg tablet See Rx Instructions .ROUTE 01/12/21 02/03/21 Rx .COMPLEX #90 tablet Toujeo SoloStar U-300 Insulin 40 unit SUB-Q QPM 01/28/21 02/03/21 History acetaminophen [Tylenol Ex Str 1,000 mg PO HS 01/28/21 02/03/21 History Arthritis Pain] Laboratory Tests 02/03/21 06:34 POC Capillary Glucose 123 mg/dl H mg/dl (65-105) Patient hx anesthesia problems: none Family hx anesthesia problems: none PMFSH Past Medical History Medical History Benign essential hypertension BMI 33.0-33.9,adult BMI 34.0-34.9,adult CKD (chronic kidney disease) Controlled diabetes mellitus with hyperglycemia, with long-term current use of insulin Cough Dehydration Dysuria Elevated PSA Elevated serum creatinine Encounter for long-term current use of medication Encounter for routine adult health examination without abnormal findings Encounter for special screening examination for neoplasm of prostate Family history of prostate cancer Gallbladder anomaly Gallbladder sludge HTN (hypertension) Hx of colonic polyps Hx of mitral valve prolapse Hx of unilateral nephrectomy Hyperlipidemia Hypothyroidism (acquired) Influenza A Itchy skin Low back pain 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 RUQ abdominal pain URI (upper respiratory infection) Urinary urgency Vitamin D deficiency Weight loss, intentional Surgical History Surgical History H/O kidney removal H/O right nephrectomy Family History Family History Mother Diabetes mellitus Family history of diabetes mellitus in first degree relative Sibling Malignant neoplasm of prostate Other Family history of cardiovascular disease Social History Social History Smoking status: Never smoker Second hand tobacco smoke exposure: No Alcohol intake: never Substance use: never Substance use type: does not use Living arrangements: with family Spiritual care concerns: No Anes - Eval Final PreProcedure Day of Procedure 02/03/21 06:40 Patient weight: obese Heart: regular rate and rhythm Lungs: clear to auscultation Airway: Mallampati scale class II Neurological: alert and oriented Last oral intake: >/= 8 hours ASA classification: III Emergent: no Anesthetic plan: proceed Anesthesia type and monitoring: general LMA and standard monitoring Informed Consent: The patient's anesthetic plan and its attendant risks and benefits were discussed with the patient/
[2021-02-03] MEDS: LACTATED RINGERS 1,000 ML 30 ML IV CONT (06:43)
--- NOTE | 2021-02-03 07:19 | PM.IMHP ---
H&P: HPI History of Present Illness Date/Time: 02/03/21 07:19 Chief Complaint: Left renal calculi Narrative: 65 year old male with solitary left kidney and renal calculi. Presents for stone extraction Review of Systems Review of Systems: All systems reviewed & are unremarkable except as noted in HPI and below [facility] Past Medical History Medical History Benign essential hypertension BMI 33.0-33.9,adult BMI 34.0-34.9,adult CKD (chronic kidney disease) Controlled diabetes mellitus with hyperglycemia, with long-term current use of insulin Cough Dehydration Dysuria Elevated PSA Elevated serum creatinine Encounter for long-term current use of medication Encounter for routine adult health examination without abnormal findings Encounter for special screening examination for neoplasm of prostate Family history of prostate cancer Gallbladder anomaly Gallbladder sludge HTN (hypertension) Hx of colonic polyps Hx of mitral valve prolapse Hx of unilateral nephrectomy Hyperlipidemia Hypothyroidism (acquired) Influenza A Itchy skin Low back pain On halfway drug therapy RUQ abdominal pain URI (upper respiratory infection) Urinary urgency Vitamin D deficiency Weight loss, intentional Surgical History Surgical History H/O kidney removal H/O right nephrectomy Family History Family History Mother Diabetes mellitus Family history of diabetes mellitus in first degree relative Sibling Malignant neoplasm of prostate Other Family history of cardiovascular disease Social History Social History Smoking status: Never smoker Second hand tobacco smoke exposure: No Alcohol intake: never Substance use: never Substance use type: does not use Living arrangements: with family Spiritual care concerns: No Meds Home Medications and Allergies Home Medications Medication Instructions Recorded Confirmed Type losartan 100 mg tablet 100 mg PO DAILY #90 tablet 02/18/20 02/03/21 Rx pen needle, diabetic 32 gauge x #100 ea 06/16/20 12/10/20 Rx /32 metformin 1,000 mg tablet See Rx Instructions .ROUTE 09/22/20 02/03/21 Rx .COMPLEX #180 tablet flash glucose sensor #6 each 12/09/20 12/10/20 Rx semaglutide 1 mg/dose (2 mg/1.5 See Rx Instructions .ROUTE 12/30/20 02/03/21 Rx mL) subcutaneous pen injector .COMPLEX #9 ml rosuvastatin 40 mg tablet See Rx Instructions .ROUTE 01/06/21 02/03/21 Rx .COMPLEX #90 tablet levothyroxine 100 mcg tablet See Rx Instructions .ROUTE 01/12/21 02/03/21 Rx .COMPLEX #90 tablet Toujeo SoloStar U-300 Insulin 40 unit SUB-Q QPM 01/28/21 02/03/21 History acetaminophen [Tylenol Ex Str 1,000 mg PO HS 01/28/21 02/03/21 History Arthritis Pain] Allergies Allergy/AdvReac Type Severity Reaction Status Date / Time No Known Allergies Allergy Verified 02/03/21 06:23 Vital Signs Vital Signs - 24 hr 02/03/21 06:22 Temperature 36.6 C Pulse Rate 74 Respiratory Rate 16 Blood Pressure 121/68 Pulse Oximetry 97 Exam Const: General: cooperative and no acute distress HENMT: Head: normal to inspection Eyes: General: appearance normal, both eyes and all related structures Neck: Neck: normal visual inspection Chest: Chest palpation & inspection: normal inspection of the chest Resp: Effort & Inspection: normal respiratory effort Cardio: Rate: regular rate Rhythm: regular rhythm GI: GI Palp: Yes Soft to palpation Skin: General skin exam: normal color Assessment and Plan Assessment and plan (1) Left renal stone: Code(s): N20.0 - Calculus of kidney Status: Acute Assessment and Plan: Cystoscopy, left retrograde, left ureteroscopy with stone extraction, posssible laser, stent
--- NOTE | 2021-02-03 07:22 | WPDHPUPDATE1 ---
History and Physical Update Update Date/Time: 02/03/21 07:22 History and Physical has been reviewed, including an updated exam of the patient. There are NO changes in the patient's condition. Risks, benefits, and alternatives have been discussed and questions answered. Patient agrees to proceed with procedure.
[2021-02-03] MEDS: ceFAZolin 2 GM/D5W 50 ML 2 GM/50 ML BAG IVPB (07:29)
[2021-02-03] MEDS: LIDOCAINE HCL 2% GEL UROJET 10 ML PKG MUCOUS MEM (07:48)
--- NOTE | 2021-02-03 08:07 | P.OP_ITS ---
Procedure Note - Detailed Date of Procedure 02/03/21 Pre-op Diagnosis Left renal stone Post-op Diagnosis same Procedure Performed Cystoscopy, left retrograde pyelogram, left ureteroscopy with stone extraction, left ureteral stent exchange 4.8 Cam[place]onian contour Surgeon Mohamud Anderson MD Anesthesia general Findings 3 lower pole renal stones on the left - measuring anywhere from 4-7 mm Description of Procedure patient is taken to the operative suite and correctly identified. Once anesthesia was obtained he was placed in dorsal lithotomy position and prepped and draped usual sterile fashion. Twenty-two Cameroonian scope was inserted in the bladder. The stent was grasped and brought out the meatus. We then placed a wire up into the left collecting system. Ureteral access sheath was then placed. Flexible ureteral scope was inserted all way up to the kidney. Multiple stones were seen in the left lower pole. These were grasped using an escape basket and retrieved in its entirety. Pyelogram was then performed. There was no residual stones noted at this time. 4.8 Cam[place]onian contour stent was then placed with the proximal end coiled in the renal pelvis and the distal end in the bladder. Patient was taken recovery stable condition after 2% viscous lidocaine was inserted into the urethra. He will follow up in a week's time with stent removal. Drains Yes Packing No Pathology yes Condition stable Disposition PACU
[2021-02-03 08:32] LABS: Glucose Point of Care 108 mg/dl (65-105)
== END 2021-02-03 09:55 | disposition home or self-care (01) ==
PROVIDERS: PCP Internal Medicine; Visit Provider Urology
PROC: (CPT 52352; principal; 2021-02-03 07:30)
DX: N20.0 Calculus of kidney (principal); E55.9 Vitamin D deficiency, unspecified; I12.9 Hypertensive chronic kidney disease with stage 1 through stage 4 chronic kidney disease, or unspecified chronic kidney disease; E11.9 Type 2 diabetes mellitus without complications; E11.65 Type 2 diabetes mellitus with hyperglycemia; Z79.4 Long term (current) use of insulin; E11.22 Type 2 diabetes mellitus with diabetic chronic kidney disease; N18.9 Chronic kidney disease, unspecified; E03.9 Hypothyroidism, unspecified; E66.9 Obesity, unspecified; Z68.35 Body mass index [BMI] 35.0-35.9, adult
CPT/HCPCS: 52332; 52352; 36415; 74420; 80048; 82365; 82948; 87086; 88300; 93005; A9270; C1769; C1894; C2617; J0690; J2250; J2405; J2704; J3010; J7120; Q9966

== ENCOUNTER 2021-02-21 04:57 | Inpatient (IN) | payer BC, SELFPAY ==
[2021-02-21] VITALS (19 sets, daily range): BP systolic 103–161; BP diastolic 63–88; PULSE 63–89; RESP 12–21; TEMP 36.8–37; O2SAT 94–100; BMI 34.4
--- NOTE | ~2021-02-21 | CT_ITS ---
EXAMINATION: CT abdomen pelvis wo con DATE: 02/21/2021 05:51 INDICATION: Left flank pain. Nausea and vomiting. TECHNIQUE: Computed tomography (CT) of the abdomen and pelvis was performed without intravenous contr ast. Automated exposure control and iterative reconstruction technique were employed. Exam dose: 139 1.41 mGy-cm total exam DLP. COMPARISON: 11/28/2020 CT abdomen pelvis FINDINGS: The lung bases are clear. Normal heart size. Coronary artery atherosclerotic calcification. No pericardial or pleural effusion. Small sliding hiatal hernia. There is dense sludge and/or stones layering in the dependent gallbladder. Small phrygian cap of the gallbladder. No gallbladder wall thickening. No bile duct or pancreatic duct dilatation. No hepatic, splenic, pancreatic, adrenal space-occupying mass lesion. Status post right nephrectomy. 6.2 cm upper pole left renal cyst. Status post right nephrectomy. Approximately 6 x 8.7 x 11 mm left ureteral pelvic junction calculus with prominent left renal pelvie ctasis and hydronephrosis as a result. There is perinephric stranding and thickening of the anterior and posterior pararenal fascia. There is proximal left periureteral stranding. Small amount of air in the urinary bladder. There is diffuse bladder wall thickening. There is pericy stic fat stranding. Consider cystitis. There is prostate enlargement. There is calcification of the abdominal aorta but no aneurysm. No intraperitoneal or retroperitoneal or pelvic mass lesion or adenopathy or ascites. Diverticulosis of the left colon; no CT evidence of diverticulitis. No bowel obstruction or intraperi toneal free air. There is multilevel degenerative disc disease of lumbar spine, particularly at L2-3, L3-4 and L4-5. IMPRESSION: 6 x 8.7 x 11 mm left ureteropelvic junction obstructing calculus with prominent left hyd roureteronephrosis, perinephric and periureteral stranding . Status post right nephrectomy 6.2 cm upper pole left renal cyst Bladder wall thickening, pericystic stranding; consider cystitis. Small sliding hiatal hernia Dense sludge and/or stones layering in the dependent gallbladder Diverticulosis of left colon; no CT evidence of diverticulitis Reviewed, dictated and finalized at [facility] Reviewed, dictated and finalized at [facility]. IMPRESSION: 6 x 8.7 x 11 mm left ureteropelvic junction obstructing calculus w ith prominent left hydroureteronephrosis, perinephric and periureteral strandin g . Status post right nephrectomy 6.2 cm upper pole left renal cyst Bladder wall thickening, pericystic stranding; consider cystitis. Small sliding hiatal hernia Dense sludge and/or stones layering in the dependent gallbladder Diverticulosis of left colon; no CT evidence of diverticulitis
--- NOTE | ~2021-02-21 | XR_ITS ---
XR retrograde pyelo w/stent LT DATE: 02/21/2021 09:16 INDICATION: 11 mm left ureteropelvic junction obstructing calculus, prominent left hydronephrosis TECHNIQUE: 31.7 seconds fluoroscopy time 870.61 radcm2 COMPARISON: None FINDINGS: There is narrowing at the left ureteropelvic junction, with prominent left pelviectasis and hydronephrosis. There is relatively nodular appearing proximal left ureter. IMPRESSION: Prominent left renal pelvis and left hydronephrosis Reviewed, dictated and finalized at [facility] Reviewed, dictated and finalized at [facility].
--- NOTE | 2021-02-21 05:41 | ED.GENADULT ---
HPI - General Adult General Chief complaint: Abdominal Pain Stated complaint: L flank pain Time Seen by Provider: 02/21/21 05:07 History of Present Illness HPI narrative: Patient is a 65-year-old male who presents ER with left-sided flank pain. Ongoing over the last day. Has history of kidney stones and recently had a urinary stent with lithotripsy and subsequent removal of stent. He is concerned there is residual stones that he is passing. He has history of only one kidney. Reports mild mild nausea with vomiting. Related Data Home Medications Medication Instructions Recorded Confirmed Sabinoumissy SoloStar U-300 Insulin 40 unit SUB-Q QPM 01/28/21 02/21/21 acetaminophen 1,000 mg PO HS 01/28/21 02/21/21 Allergies Allergy/AdvReac Type Severity Reaction Status Date / Time sulfamethoxazole AdvReac Intermediate Sweating Verified 02/21/21 05:16 [From Sulfamethoxazole-Trimethoprim] trimethoprim AdvReac Intermediate Sweating Verified 02/21/21 05:16 [From Sulfamethoxazole-Trimethoprim] Review of Systems Review of Systems: All systems reviewed & are unremarkable except as noted in HPI and below Constitutional: Constitutional: Denies chills, Denies fever(s) and Denies weakness Gastrointestinal: Gastrointestinal: Reports abdominal pain, Denies diarrhea, Reports nausea and Reports vomiting Genitourinary: Genitourinary: Denies hematuria, Denies oliguria, Denies dysuria and Denies urinary frequency PMFSH Past Medical History Medical History Benign essential hypertension BMI 33.0-33.9,adult BMI 34.0-34.9,adult CKD (chronic kidney disease) Controlled diabetes mellitus with hyperglycemia, with long-term current use of insulin Cough Dehydration Dysuria Elevated PSA Elevated serum creatinine Encounter for long-term current use of medication Encounter for routine adult health examination without abnormal findings Encounter for special screening examination for neoplasm of prostate Family history of prostate cancer Gallbladder anomaly Gallbladder sludge HTN (hypertension) Hx of colonic polyps Hx of mitral valve prolapse Hx of unilateral nephrectomy Hyperlipidemia Hypothyroidism (acquired) Influenza A Itchy skin Low back pain On care home drug therapy RUQ abdominal pain URI (upper respiratory infection) Urinary urgency Vitamin D deficiency Weight loss, intentional Surgical History Surgical History H/O kidney removal H/O right nephrectomy Family History Family History Mother Diabetes mellitus Family history of diabetes mellitus in first degree relative Sibling Malignant neoplasm of prostate Other Family history of cardiovascular disease Social History Social History Smoking status: Never smoker Second hand tobacco smoke exposure: No Alcohol intake: never Substance use: never Substance use type: does not use Gender identity (if verbalized by the patient): Male Spiritual care concerns: No Exam Narrative: GENERAL: Well-appearing, well-nourished, and in no acute distress. HEAD: Normocephalic, atraumatic. CHEST: Clear to auscultation. No respiratory distress. HEART: Regular rate and rhythm. Normal peripheral pulses. ABDOMEN: Soft, nontender, nondistended. EXTREMITIES: Normal range of motion. No edema. SKIN: Warm, dry, no rash. NEURO: Alert and oriented x3. PSYCH: Normal mood and affect. Course Course Emergency Course: Discussed case with urology who will plan on taking patient to the OR. He has been n.p.o. Admit to hospitalist service. Ceftriaxone for infection. Vital Signs Vital signs: Vital Signs Temperature 98.4 F 02/21/21 05:05 Pulse Rate 89 02/21/21 05:05 Respiratory Rate 16 02/21/21 05:05 Blood Pressure 145/88 H 02/21/21 05:05 Pulse Oximet
[2021-02-21] MEDS: SODIUM CHLORIDE 0.9% IV 1,000 ML 999 ML IV CONT (06:05)
[2021-02-21 06:10] LABS: Basophils Absolute Auto 0.1 K/mm3 (0.0-0.1); Basophils Percent Auto 0.5 % (0.2-1.2); Eosinophils Absolute Auto 0.2 K/mm3 (0-0.3); Eosinophils Percent Auto 1.5 % (0-4.4); Hematocrit 37.6 % (42.0-52.0); Hemoglobin 12.2 g/dL (14.0-18.0); Immature Granulocyte Absolute 0.07 K/mm3 (0.00-0.031); Immature Granulocyte Percent A 0.6 % (0-0.5); Lymphocytes Absolute Auto 0.82 K/mm3 (0.9-3.2); Lymphocytes Percent Auto 7.3 % (18.3-44.2); Mean Corpuscular HGB Conc 32.4 g/dl (32-36); Mean Corpuscular Hemoglobin 29.3 pg (26-34); Mean Corpuscular Volume 90.2 fl (80-100); Mean Platelet Volume 11.2 fl (7.4-10.4); Monocytes Absolute Auto 1.4 K/mm3 (0.1-0.6); Monocytes Percent Auto 12.3 % (2.6-8.5); Neutrophils Absolute Auto 8.7 K/mm3 (1.3-6.7); Neutrophils Percent Auto 77.8 % (45.5-73.1); Platelet Count Result 171 k/mm3 (150-375); Red Blood Count 4.17 M/mm3 (4.6-6.20); Red Cell Distribution Width 13.7 % (11.5-14.5); White Blood Count 11.2 K/mm3 (4.5-10.0)
[2021-02-21 06:23] LABS: Add Urine Microscopic? YES; Appearance Urine Cloudy (Clear); Bacteria Urine Trace /hpf; Bilirubin Urine Negative (Negative); Blood Urine 2+ (Negative); Color Urine Yellow (Yellow); Glucose Urine UA 1+ mg/dL (Negative); Ketones Urine Negative (Negative); Leukocyte Esterase Ur 3+ LEU/UL (Negative); Mucus Urine Rare /lpf; Nitrate Urine Negative (Negative); Protein Urine 1+ mg/dL (Negative); Specific Grav Ur 1.009 (1.001-1.035); Urobilinogen Urine Negative mg/dL (<2.0); WBC Clumps Urine Present /HPF; WBC Urine >75 /hpf
[2021-02-21 06:27] LABS: Anion Gap 12 mmol/L (8-16); Blood Urea Nitrogen 79 mg/dL (9-20); Calcium 8.8 mg/dL (8.4-10.2); Carbon Dioxide 22 mmol/L (22-30); Chloride 100 mmol/L (98-107); Estimated CRCL calculation 10 ml/min; Estimated Glomerular Filt Rate 6; Glucose 144 mg/dL (65-110); Potassium 4.5 mmol/L (3.4-5.0); Sodium 134 mmol/L (137-145)
[2021-02-21 08:03] LABS: Glucose Point of Care 144 mg/dl (65-105)
--- NOTE | 2021-02-21 08:27 | WPDANESEPPF ---
Anes - Initial Pre Proc Eval Procedure: Operation Date: 02/21/21 08:30 Proposed Procedures p Cystoscopy,Left Stent Placement - Yovany Miller MD Date/Time: 02/21/21 08:27 Surgeon: Yovany Miller MD Pre Op Diagnosis: Ureterolithiasis,jamie,uti Patient Data Age: 65 Gender: M Height: 1.78 m Weight: 108.86 kg Last Vital Signs Temp 36.9 C 02/21/21 07:35 Pulse 84 02/21/21 07:35 Resp 16 02/21/21 07:35 BP 119/71 02/21/21 07:35 Pulse Ox 95 02/21/21 07:35 Allergies Allergy/AdvReac Type Severity Reaction Status Date / Time sulfamethoxazole AdvReac Intermediate Sweating Verified 02/21/21 05:16 [From Sulfamethoxazole-Trimethoprim] trimethoprim AdvReac Intermediate Sweating Verified 02/21/21 05:16 [From Sulfamethoxazole-Trimethoprim] Home Medications Medication Instructions Recorded Confirmed Type losartan 100 mg tablet 100 mg PO DAILY #90 tablet 02/18/20 02/03/21 Rx pen needle, diabetic 32 gauge x #100 ea 06/16/20 12/10/20 Rx metformin 1,000 mg tablet See Rx Instructions .ROUTE 09/22/20 02/03/21 Rx .COMPLEX #180 tablet flash glucose sensor #6 each 12/09/20 12/10/20 Rx semaglutide 1 mg/dose (2 mg/1.5 See Rx Instructions .ROUTE 12/30/20 02/03/21 Rx mL) subcutaneous pen injector .COMPLEX #9 ml rosuvastatin 40 mg tablet See Rx Instructions .ROUTE 01/06/21 02/03/21 Rx .COMPLEX #90 tablet Toujeo SoloStar U-300 Insulin 40 unit SUB-Q QPM 01/28/21 02/03/21 History acetaminophen 1,000 mg PO HS 01/28/21 02/03/21 History insulin lispro 100 unit/mL 10 unit SUBCUT .QACMeals #15 ml 02/10/21 Rx subcutaneous cartridge levothyroxine 88 mcg tablet 88 mcg PO DAILY #30 tablet 02/10/21 Rx Laboratory Tests 02/21/21 02/21/21 02/21/21 05:58 05:58 06:11 WBC 11.2 K/mm3 H K/mm3 (4.5-10.0) RBC 4.17 M/mm3 L M/mm3 (4.6-6.20) Hgb 12.2 g/dL L g/dL (14.0-18.0) Hct 37.6 % L % (42.0-52.0) MCV 90.2 fl fl (80-100) MCH 29.3 pg pg (26-34) MCHC 32.4 g/dl g/dl (32-36) RDW 13.7 % % (11.5-14.5) Plt Count 171 k/mm3 k/mm3 (150-375) MPV 11.2 fl H fl (7.4-10.4) Immature Gran % (Auto) 0.6 % H % (0-0.5) Neut % (Auto) 77.8 % H % (45.5-73.1) Lymph % (Auto) 7.3 % L % (18.3-44.2) Foster % (Auto) 12.3 % H % (2.6-8.5) Eos % (Auto) 1.5 % % (0-4.4) Baso % (Auto) 0.5 % % (0.2-1.2) Lymph # (Auto) 0.82 K/mm3 L K/mm3 (0.9-3.2) Foster # (Auto) 1.4 K/mm3 H K/mm3 (0.1-0.6) Eos # (Auto) 0.2 K/mm3 K/mm3 (0-0.3) Baso # (Auto) 0.1 K/mm3 K/mm3 (0.0-0.1) Abs Immat Gran (auto) 0.07 K/mm3 H K/mm3 (0.00-0.031) Absolute Neuts (auto) 8.7 K/mm3 H K/mm3 (1.3-6.7) Absolute Nucleated RBC 0.0 K/mm3 K/mm3 (0.0-0.012) Nucleated RBC % 0.0 % % (0.0-0.2) Sodium 134 mmol/L L mmol/L (137-145) Potassium 4.5 mmol/L mmol/L (3.4-5.0) Chloride 100 mmol/L mmol/L (98-107) Carbon Dioxide 22 mmol/L mmol/L (22-30) Anion Gap 12 mmol/L mmol/L (8-16) BUN 79 mg/dL H D mg/dL (9-20) Creatinine 8.50 mg/dL H mg/dL (0.7-1.3) Estim Creat Clear Calc 10 ml/min ml/min Estimated GFR 6 L (59 - ) Glucose 144 mg/dL H mg/dL (65-110) POC Capillary Glucose Calcium 8.8 mg/dL mg/dL (8.4-10.2) Urine Color Yellow (Yellow) Urine Appearance Cloudy H (Clear) Urine pH 6.0 (5.0-9.0) Ur Specific [place] 1.009 (1.001-1.035) Urine Protein 1+ mg/dL H mg/dL (Negative) Urine Glucose (UA) 1+ mg/dL H mg/dL (Negative) Urine Ketones Negative mg/dL mg/dL (Negative) Ur Blood (Man) 2+ H (Negative) Urine Nitrate Negative (Negative) Urine Bilirub
--- NOTE | 2021-02-21 08:37 | WPDURCON ---
Assessment and Plan Assessment and plan (1) Left ureteral stone: Code(s): N20.1 - Calculus of ureter Status: Acute (2) Acute kidney injury: Code(s): N17.9 - Acute kidney failure, unspecified Status: Acute (3) Solitary kidney: Code(s): Q60.0 - Renal agenesis, unilateral Status: Acute Assessment and Plan: Cystoscopy, left ureteroscopy with possible laser lithotripsy, possible stone extraction and left ureteral stent placement Urology Consult Note HPI Date Seen: 02/21/21 Requesting Physician: Yovany Miller MD Primary Care Provider: Rafael Guajardo MD Consult Narrative Narrative: Nico Aggarwal is a 65 year old male well known to our practice with recurring urolithiasis. Has a solitary kidney. Despite recent ureteroscopy with subsequent stent removal history presents with acute left renal colic. Imaging reveals an obstructing proximal ureteral stone his serum creatinine is elevated 8.5. He is being admitted and will make plans for cystoscopy with left ureteroscopy, possible laser lithotripsy stone extraction, left ureteral stent placement. He is aware the risk including, but not limited to, adverse cardiopulmonary events, ureteral injury and hematuria. Review of Systems Cardiovascular: Cardiovascular: Denies chest pain, Denies lightheadedness, Denies palpitations and Denies dyspnea Respiratory: Respiratory: Denies dyspnea Gastrointestinal: Gastrointestinal: Denies diarrhea, Denies nausea and Denies vomiting Genitourinary: Genitourinary: Denies hematuria and Denies dysuria Endocrine: Endocrine: Denies palpitations PMFSH Past Medical History Medical History Benign essential hypertension BMI 33.0-33.9,adult BMI 34.0-34.9,adult CKD (chronic kidney disease) Controlled diabetes mellitus with hyperglycemia, with long-term current use of insulin Cough Dehydration Dysuria Elevated PSA Elevated serum creatinine Encounter for long-term current use of medication Encounter for routine adult health examination without abnormal findings Encounter for special screening examination for neoplasm of prostate Family history of prostate cancer Gallbladder anomaly Gallbladder sludge HTN (hypertension) Hx of colonic polyps Hx of mitral valve prolapse Hx of unilateral nephrectomy Hyperlipidemia Hypothyroidism (acquired) Influenza A Itchy skin Low back pain On prison drug therapy RUQ abdominal pain URI (upper respiratory infection) Urinary urgency Vitamin D deficiency Weight loss, intentional Surgical History Surgical History H/O kidney removal H/O right nephrectomy Family History Family History Mother Diabetes mellitus Family history of diabetes mellitus in first degree relative Sibling Malignant neoplasm of prostate Other Family history of cardiovascular disease Social History Social History Second hand tobacco smoke exposure: No Alcohol intake: never Substance use: never Substance use type: does not use Spiritual care concerns: No Meds Home Medications and Allergies Home Medications Medication Instructions Recorded Confirmed Type losartan 100 mg tablet 100 mg PO DAILY #90 tablet 02/18/20 02/03/21 Rx pen needle, diabetic 32 gauge x #100 ea 06/16/20 12/10/20 Rx / metformin 1,000 mg tablet See Rx Instructions .ROUTE 09/22/20 02/03/21 Rx .COMPLEX #180 tablet flash glucose sensor #6 each 12/09/20 12/10/20 Rx semaglutide 1 mg/dose (2 mg/1.5 See Rx Instructions .ROUTE 12/30/20 02/03/21 Rx mL) subcutaneous pen injector .COMPLEX #9 ml rosuvastatin 40 mg tablet See Rx Instructions .ROUTE 01/06/21 02/03/21 Rx .COMPLEX #90 tablet Toujeo SoloStar U-300 Insulin 40 unit SUB-Q QPM 01/28/21 02/03/21 History acetamin
--- NOTE | 2021-02-21 08:40 | WPDHPUPDATE1 ---
History and Physical Update Update Date/Time: 02/21/21 08:40 History and Physical has been reviewed, including an updated exam of the patient. There are NO changes in the patient's condition. Risks, benefits, and alternatives have been discussed and questions answered. Patient agrees to proceed with procedure.
[2021-02-21] MEDS: LACTATED RINGERS 1,000 ML 30 ML IV CONT (09:21)
[2021-02-21] MEDS: LIDOCAINE HCL 2% GEL UROJET 10 ML PKG MUCOUS MEM (09:22)
[2021-02-21 09:58] LABS: Glucose Point of Care 141 mg/dl (65-105)
--- NOTE | 2021-02-21 10:12 | W.PM.PROC2 ---
Procedure Note - Detailed Date of Procedure 02/21/21 Pre-op Diagnosis Ureterolithiasis,jamie,uti Post-op Diagnosis same Procedure Performed Cystoscopy, left ureteroscopy with laser lithotripsy, stone extraction, left retrograde pyelogram and left ureteral stent placement Surgeon Yovany Miller MD Anesthesia general Description of Procedure Patient is brought to the operative suite was prepped draped in routine sterile fashion while in a dorsal lithotomy position after the uneventful induction of a general anesthetic. Cystoscopy is undertaken with a 19 F rigid cystoscope. He has no urethral stricture and moderate prostatic hyperplasia. There was no intravesical foreign body or neoplasm. He has a single orthotopic ureteral orifice. 0.035 in glidewire was advanced in left renal pelvis under fluoroscopy. Distal ureter was dilated with an 8 F dilator and a ureteral access sheath was placed. Ureteroscopy is undertaken with a 7.5 F flexible ureteral scope. He has a 7-8 mm stone in his left proximal ureter. The entire collecting system the remainder of his ureters carefully inspected there were no additional identifiable stones. Using a 273 micron holmium laser fiber I fractured this tiny pieces. The larger of the pieces was extracted with a 1.8 F disposable stone basket in a 4.8 F variable length stent was placed with the proximal coil in renal pelvis and distal coil in the bladder. I had done a retrograde pyelogram to ensure appropriate positioning of his stent. Estimated Blood Loss 0 Drains Yes Packing No Pathology yes Complications No immediate complications Condition stable Disposition PACU
--- NOTE | 2021-02-21 11:45 | PC.NURSE ---
This patient, Nico Aggarwal, was admitted to [address] [facility] Surg Room 310-01. Patient/family oriented to hospital policies and general routines including ID bracelet, bed and alarms, visiting hours, pain management, procedures, bathroom and other care routines, personal items, smoking policy, room service/diet, and visiting hours. Information on how to activate the Rapid Response Team has been discussed. Patient/Family are encouraged to report perceived risks to care and to ask questions if they do not understand what they are told or what they should do.
[2021-02-21] MEDS: BISACODYL 5 MG TABLET EC 10 MG PO (12:03)
--- NOTE | 2021-02-21 14:58 | PM.IMHP ---
H&P: HPI History of Present Illness Date/Time: 02/21/21 14:58 Chief Complaint: Left flank pain Narrative: This 65-year-old gentleman with a history of kidney stones and solitary kidney recently had a stent placed in the left ureter due to recurrent stone. Prior stone was about 10-15 years previously. On February 18 about 2-3 days after stent removal he began to experience a nagging discomfort in the left flank to CVA region. No urinary symptoms. No fevers chills or sweats. On February 20 the pain gradually progressed. It became severe and persistent deep and aching. He experienced nausea with vomiting. By the flight engineer hours he was chilling and sweating. He presented the emergency department where he was found to have a 15 mm obstructing stone in the upper left ureter. He went to the operating room where cystoscopy ureteroscopy and laser lithotripsy and basket stone retrieval were performed. He is now symptom free. He denied pain. He drinks several glasses of fluid per day but most of it is iced tea. He follows a low-sodium diet. He has collected 24 hour urine in the recent past but does not know the results. He had stone analysis in the recent past but is not yet learn the results. He denied chest pain shortness of breath edema palpitations syncope presyncope dysphagia change in stools abnormal bleeding dysuria or hematuria. He does admit to chronic low back discomfort which she takes Tylenol 2 tablets at bedtime. 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 Review of Systems Review of Systems: All systems reviewed & are unremarkable except as noted in HPI and below PMFSH Past Medical History Medical History Benign essential hypertension BMI 33.0-33.9,adult BMI 34.0-34.9,adult CKD (chronic kidney disease) Controlled diabetes mellitus with hyperglycemia, with long-term current use of insulin Cough Dehydration Dysuria Elevated PSA Elevated serum creatinine Encounter for long-term current use of medication Encounter for routine adult health examination without abnormal findings Encounter for special screening examination for neoplasm of prostate Family history of prostate cancer Gallbladder anomaly Gallbladder sludge HTN (hypertension) Hx of colonic polyps Hx of mitral valve prolapse Hx of unilateral nephrectomy Hyperlipidemia Hypothyroidism (acquired) Influenza A Itchy skin Low back pain On fpc drug therapy RUQ abdominal pain URI (upper respiratory infection) Urinary urgency Vitamin D deficiency Weight loss, intentional Surgical History Surgical History H/O kidney removal H/O right nephrectomy Family History Family History Mother Diabetes mellitus Family history of diabetes mellitus in first degree relative Sibling Malignant neoplasm of prostate Other Family history of cardiovascular disease Social History Social History Smoking status: Never smoker Second hand tobacco smoke exposure: No Alcohol intake: never Substance use: never Substance use type: does not use Gender identity (if verbalized by the patient): Male Spiritual care concerns: No Meds Home Medications and Allergies Home Medications Medication Instructions Recorded Confirmed Type losartan 100 mg tablet 100 mg PO DAILY #90 tablet 02/18/20 02/21/21 Rx pen needle, diabetic 32 gauge x #100 ea 06/16/20 02/21/21 Rx metformin 1,000 mg tablet See Rx Instructions .ROUTE 09/22/20 02/21/21 Rx .COMPLEX #180 tablet flash glucose sensor #6 each 12/09/20 02/21/21 Rx semaglutide 1 mg/dose (2 mg/1.5 See Rx Instructions .ROUTE 12/30/20 02/21/21 Rx mL) subcutaneous pen injector .COMPLEX #9 ml rosuvastatin 40 mg tablet See Rx Instructions .ROUTE 01/06/21 02/21/21 Rx
[2021-02-21] MEDS: INSULIN ASPART (*BKC) 100 UNITS/ML SUB-Q ×2 (17:10→17:11)
[2021-02-21] MEDS: DOCUSATE SODIUM 100 MG CAPSULE PO (17:13)
[2021-02-21 18:19] LABS: Glucose Point of Care 298 mg/dl (65-105)
[2021-02-21] MEDS: ACETAMINOPHEN 500 MG TABLET 1000 MG PO (20:15)
[2021-02-21] MEDS: INSULIN GLARGINE (*BKC) 100 UNITS/ML 20 UNITS SUB-Q (20:24)
[2021-02-21 21:35] LABS: Glucose Point of Care 319 mg/dl (65-105)
[2021-02-22] VITALS: BP 138/78; PULSE 77; RESP 20; TEMP 36.7; O2SAT 95
[2021-02-22] MEDS: LEVOTHYROXINE SODIUM 88 MCG TABLET PO (06:57)
[2021-02-22 07:58] LABS: Glucose Point of Care 199 mg/dl (65-105)
[2021-02-22] MEDS: INSULIN ASPART (*BKC) 100 UNITS/ML SUB-Q (08:01)
[2021-02-22] MEDS: ROSUVASTATIN 10 MG TABLET BY MOUTH (08:02)
[2021-02-22] MEDS: DOCUSATE SODIUM 100 MG CAPSULE PO (08:08)
[2021-02-22 09:22] LABS: Anion Gap 9 mmol/L (8-16); Blood Urea Nitrogen 73 mg/dL (9-20); Calcium 9.6 mg/dL (8.4-10.2); Carbon Dioxide 25 mmol/L (22-30); Chloride 102 mmol/L (98-107); Estimated CRCL calculation 19 ml/min; Estimated Glomerular Filt Rate 14; Glucose 221 mg/dL (65-110); Potassium 4.7 mmol/L (3.4-5.0); Sodium 136 mmol/L (137-145)
--- NOTE | 2021-02-22 10:21 | PM.DS ---
DS: Admitting Diagnosis Admitting Diagnosis 1. Left ureteral stone 2. Acute kidney injury DS: Discharge Diagnosis Discharge Diagnosis (1) Left ureteral stone: Code(s): N20.1 - Calculus of ureter Status: Acute (2) Solitary kidney: Code(s): Q60.0 - Renal agenesis, unilateral Status: Acute (3) Acute kidney injury: Code(s): N17.9 - Acute kidney failure, unspecified Status: Acute DS: Summary Hospital Course Hospital Course: Patient is a recurrent stone former with a known solitary left kidney. He presented to the ER with left flank pain and acute kidney injury. His admitting serum creatinine was 8.5. He underwent cystoscopy with laser lithotripsy, stone extraction and stent placement. Postoperatively he was comfortable tolerated a diet. He had a vigorous diuresis. The following morning his creatinine and diminished to 4.4. He had an ongoing good urine output and was comfortable, hence the decision for discharge with follow-up later in the week. Time Spent with Patient Time attestation: Total time spent providing and/or coordinating discharge services: Exam Const: General: no acute distress Resp: Effort & Inspection: normal respiratory effort GI: Inspection: non-distended GI Palp: No abdominal tenderness and No Guarding due to palpation present (GI) Auscultation: normal bowel sounds DS: Data Data Completed and Pending Pending studies at discharge: Pending at discharge 02/21/21 09:07 Surgical [PTH] Routine Labs on day of discharge: Labs from last 24 hours 02/22/21 02/22/21 02/21/21 07:48 07:20 20:20 Sodium 136 L Potassium 4.7 Chloride 102 Carbon Dioxide 25 Anion Gap 9 BUN 73 H Creatinine 4.40 H Estim Creat Clear Calc 19 Estimated GFR 14 L Glucose 221 H POC Capillary Glucose 199 H 319 H Calcium 9.6 02/21/21 17:09 Sodium Potassium Chloride Carbon Dioxide Anion Gap BUN Creatinine Estim Creat Clear Calc Estimated GFR Glucose POC Capillary Glucose 298 H Calcium Discharge Plan Discharge Attending physician on discharge: Yovany Miller Consulting providers: Yovany Miller Discharging Clinician: Yovany Miller Patient Disposition: Home, Self-Care Activity: as tolerated Diet: diabetic Discharge Instructions: 1) Activity: no driving or important decisions x24 hours. 2) Diet: resume your normal, pre-admission diet. 3) Follow-up: 5-[address] Anderson for stent removal / call for appointment ([phone]). Patient Instructions: Antibiotic Form Stand Alone Forms: General Discharge Information Follow-up/Referrals: Mohamud Anderson MD [Physician] - Discharge Medications: New cephalexin 250 mg capsule 250 mg PO Q8H Qty: 12 RF: 0 Continued Humalog U-100 Insulin 100 unit/mL cartridge 10 unit subcut .QACMeals Qty: 15 RF: 1 levothyroxine 88 mcg tablet 88 mcg PO DAILY Qty: 30 RF: 1 Toujeo SoloStar U-300 Insulin 300 unit/mL (1.5 mL) insulin pen 40 unit SUB-Q QPM RF: 0 acetaminophen 500 mg Tablet 1,000 mg PO HS RF: 0 losartan 100 mg tablet 100 mg PO DAILY Qty: 90 RF: 3 (DME) pen needle, diabetic [BD Ultra-Fine Lelo Pen Needle] 32 gauge x 5/32 needle See Rx Instructions .ROUTE .MEDSUPPLY Qty: 100 RF: 3 metformin 1,000 mg tablet See Rx Instructions .ROUTE .COMPLEX Qty: 180 RF: 3 (DME) FreeStyle Sean 14 Day Sensor Kit See Rx Instructions .ROUTE .MEDSUPPLY Qty: 6 RF: 3 Ozempic 1 mg/dose (2 mg/1.5 mL) pen injector See Rx Instructions .ROUTE .COMPLEX Qty: 9 RF: 3 rosuvastatin 40 mg tablet See Rx Instructions .ROUTE .COMPLEX Qty: 90 RF: 3 Date of admission: 02/21/21 15:30 Primary Care Provider: Rafael Guajardo Admitting Provider: Yovany Miller Attending physician on admission: Yovany Miller Condition: Stable Quality VTE Prophylaxis VTE prophylaxis: mechanical o
--- NOTE | 2021-02-22 10:59 | PM.IMPN ---
Progress Note: A&P Assessment and Plan (1) Left ureteral stone: Code(s): N20.1 - Calculus of ureter Status: Acute Assessment and Plan: DOING WELL FOLLOWING CYSTOSCOPY WITH LASER LITHOTRIPSY AND STONE EXTRACTION AWAIT RESULTS OF 24 HOUR URINE STUDIES DONE PREVIOUSLY AND STONE ANALYSIS DONE PREVIOUSLY HOME TODAY TO F/U WITH DRS. OROZCO, ALDO, AND NICK OUTPATIENT (2) Acute kidney injury: Code(s): N17.9 - Acute kidney failure, unspecified Status: Acute Assessment and Plan: LIKELY DUE TO OBSTRUCTIVE UROPATHY FROM URETERAL STONE BASELINE CREATININE IS 1.3-1.5. 02/21 8.5, 02/22 4.4 ENCOURAGE P.O. FLUIDS HOLD LOSARTAN AND METFORMIN UNTIL INSTRUCTED BY DR. ROMERO TO RESUME FOLLOW-UP CREATININE IN 2 DAYS (COPY TO DR. ROMERO AND DR. OROZCO) (3) Solitary kidney: Code(s): Q60.0 - Renal agenesis, unilateral Status: Acute Assessment and Plan: STATUS POST EXCISION OF RIGHT KIDNEY FOR BENIGN LESION (4) CKD (chronic kidney disease): Qualifiers: Chronic kidney disease stage: stage 2 (mild) Qualified Code(s): N18.2 - Chronic kidney disease, stage 2 (mild) Code(s): N18.9 - Chronic kidney disease, unspecified Status: Acute Assessment and Plan: MILD DUE TO SOLITARY KIDNEY DISCUSSED NEED TO MAINTAIN ADEQUATE HYDRATION AND AVOID NEPHROTOXIC DRUGS SUCH NSAIDS (5) Hypothyroidism (acquired): Code(s): E03.9 - Hypothyroidism, unspecified Status: Acute Assessment and Plan: CONTINUE LEVOTHYROXINE (6) Benign essential hypertension: Code(s): I10 - Essential (primary) hypertension Status: Acute Assessment and Plan: HOLD LOSARTAN DUE TO ACUTE KIDNEY INJURY AND MONITOR BLOOD PRESSURE (7) Type 2 diabetes mellitus with hyperglycemia: Qualifiers: Diabetes mellitus manager terminal insulin use: unspecified fci insulin use status Qualified Code(s): E11.65 - Type 2 diabetes mellitus with hyperglycemia Code(s): E11.65 - Type 2 diabetes mellitus with hyperglycemia Status: Acute Assessment and Plan: DIABETIC DIET REDUCE LANTUS AND PRE MEAL INSULIN WHILE ON HOSPITAL REGIMEN ADD SLIDING SCALE INSULIN Subjective Date/time seen: 02/22/21 10:59 Interval history: 02/22 visit: Feels good. No pain. Bowels moved. No dysuria or hematuria. No cp or sob or swelling. Review of Systems Review of Systems: All systems reviewed & are unremarkable except as noted in HPI and below Exam Narrative: HEENT: PERRL, sclerae nonicteric, pharyngeal mucosa pink and intact NECK: No JVD, adenopathy, or thyromegaly CHEST: Clear to auscultation. Normal effort. HEART: NL S1/S2, regular, no murmur ABDOMEN: BS+, soft, nontender, no mass, no bruits EXTREMITIES: No cyanosis, edema, or clubbing NEUROLOGIC: CN intact and symmetric to inspection. MUSCULOSKELETAL: Tone and strength symmetric. PSYCH: Alert. Oriented to person, place, and time. Objective Data Vital Signs Vital Signs: Vital Signs - 24 hr 02/21/21 11:09 02/21/21 11:25 02/21/21 11:55 Temperature 98.3 F 98.5 F 98.5 F Pulse Rate 78 82 85 Respiratory Rate 16 18 18 Blood Pressure 110/70 119/68 120/65 Pulse Oximetry 98 98 97 02/21/21 12:55 02/21/21 13:00 02/21/21 16:09 Temperature 98.6 F 98.6 F Pulse Rate 81 70 63 Respiratory Rate 18 13 18 Blood Pressure 132/74 118/66 Pulse Oximetry 98 96 94 02/21/21 17:31 02/21/21 20:00 02/21/21 20:09 Temperature 98.3 F Pulse Rate 77 83 Respiratory Rate 20 20 Blood Pressure 143/73 H Pulse Oximetry 95 95 97 02/22/21 00:00 Temperature 98.1 F Pulse Rate 77 Respiratory Rate 20 Blood Pressure 138/78 Pulse Oximetry 95 Intake/Output Intake/Output: Intake & Output 02/19/21 02/20/21 02/21/21 02/22/21 23:59 23:59 23:59 23:59 Intake Total 2790 640 Output Total 1500 425 Balance 1290 215 Meds/Results Medications: Active Medications Generic Name Dose Route Start Last Admin
--- NOTE | 2021-03-08 15:51 | PM.DS ---
DS: Admitting Diagnosis Admitting Diagnosis Left ureteral stone with obstructive uropathy DS: Discharge Diagnosis Discharge Diagnosis (1) Left ureteral stone: Code(s): N20.1 - Calculus of ureter Status: Acute Assessment and Plan: DOING WELL FOLLOWING CYSTOSCOPY WITH LASER LITHOTRIPSY AND STONE EXTRACTION AWAIT RESULTS OF 24 HOUR URINE STUDIES DONE PREVIOUSLY AND STONE ANALYSIS DONE PREVIOUSLY HOME TODAY TO F/U WITH DRS. OROZCO, ALDO, AND INCK OUTPATIENT (2) Acute kidney injury: Code(s): N17.9 - Acute kidney failure, unspecified Status: Acute Assessment and Plan: LIKELY DUE TO OBSTRUCTIVE UROPATHY FROM URETERAL STONE BASELINE CREATININE IS 1.3-1.5. 02/21 8.5, 02/22 4.4 ENCOURAGE P.O. FLUIDS HOLD LOSARTAN AND METFORMIN UNTIL INSTRUCTED BY DR. ROMERO TO RESUME FOLLOW-UP CREATININE IN 2 DAYS (COPY TO DR. ROMERO AND DR. OROZCO) (3) Solitary kidney: Code(s): Q60.0 - Renal agenesis, unilateral Status: Acute Assessment and Plan: STATUS POST EXCISION OF RIGHT KIDNEY FOR BENIGN LESION (4) CKD (chronic kidney disease): Qualifiers: Chronic kidney disease stage: stage 2 (mild) Qualified Code(s): N18.2 - Chronic kidney disease, stage 2 (mild) Code(s): N18.9 - Chronic kidney disease, unspecified Status: Acute Assessment and Plan: MILD DUE TO SOLITARY KIDNEY DISCUSSED NEED TO MAINTAIN ADEQUATE HYDRATION AND AVOID NEPHROTOXIC DRUGS SUCH NSAIDS (5) Hypothyroidism (acquired): Code(s): E03.9 - Hypothyroidism, unspecified Status: Acute Assessment and Plan: CONTINUE LEVOTHYROXINE (6) Benign essential hypertension: Code(s): I10 - Essential (primary) hypertension Status: Acute Assessment and Plan: HOLD LOSARTAN DUE TO ACUTE KIDNEY INJURY AND MONITOR BLOOD PRESSURE (7) Type 2 diabetes mellitus with hyperglycemia: Qualifiers: Diabetes mellitus termite treater helper insulin use: unspecified termite treater helper insulin use status Qualified Code(s): E11.65 - Type 2 diabetes mellitus with hyperglycemia Code(s): E11.65 - Type 2 diabetes mellitus with hyperglycemia Status: Acute Assessment and Plan: DIABETIC DIET REDUCE LANTUS AND PRE MEAL INSULIN WHILE ON HOSPITAL REGIMEN ADD SLIDING SCALE INSULIN DS: Summary Hospital Course Reason for hospitalization: Left flank pain Hospital Course: Patient was seen and examined on 02/20 Patient presented the emergency room with left flank pain and was found to have elevated creatinine as noted below. He underwent cystoscopy with stent placement and stone fragmentation with laser as noted below. His creatinine improved as noted below. His pain resolved. He was up and about without difficulty tolerating his diet and wished to go home. Time Spent with Patient Time attestation: Total time spent providing and/or coordinating discharge services: Exam Narrative: HEENT: PERRL, sclerae nonicteric, pharyngeal mucosa pink and intact NECK: No JVD, adenopathy, or thyromegaly CHEST: Clear to auscultation. Normal effort. HEART: NL S1/S2, regular, no murmur ABDOMEN: BS+, soft, nontender, no mass, no bruits EXTREMITIES: No cyanosis, edema, or clubbing NEUROLOGIC: CN intact and symmetric to inspection. MUSCULOSKELETAL: Tone and strength symmetric. PSYCH: Alert. Oriented to person, place, and time DS: Data Data Completed and Pending Completed studies during hospitalization: Pending at discharge 02/21/21 09:07 Surgical [PTH] Routine Discharge Plan Discharge Attending physician on discharge: Yovany Miller Consulting providers: Yovany Miller ; Anthony Copeland ; Saul Purcell Discharging Clinician: Yovany Miller Patient Disposition: Home, Self-Care Activity: as tolerated Diet: diabetic Discharge Instructions: 1) Activity: no driving or important decisions x24 hours. 2) Diet: resume your normal, pre-admission diet. 3) Fo
== END 2021-02-22 11:45 | disposition home or self-care (01) | DRG 660 ==
LOC: ANHED 10:27 → ANH3MEDSUR 19:56
PROVIDERS: Admitting Provider Internal Medicine; Emergency Provider Emergency Medicine; PCP Internal Medicine; Visit Provider Urology
PROC: 0TC78ZZ Extirpation of Matter from Left Ureter, Via Natural or Artificial Opening Endoscopic (ICD-10-PCS; CPT 52352; principal; 2021-02-21 08:30)
DX: N20.1 Calculus of ureter (principal); Q60.0 Renal agenesis, unilateral; N13.8 Other obstructive and reflux uropathy; N17.9 Acute kidney failure, unspecified; E11.65 Type 2 diabetes mellitus with hyperglycemia; I12.9 Hypertensive chronic kidney disease with stage 1 through stage 4 chronic kidney disease, or unspecified chronic kidney disease; N18.2 Chronic kidney disease, stage 2 (mild); E11.22 Type 2 diabetes mellitus with diabetic chronic kidney disease; E03.9 Hypothyroidism, unspecified; E55.9 Vitamin D deficiency, unspecified; E66.9 Obesity, unspecified; Z68.34 Body mass index [BMI] 34.0-34.9, adult
CPT/HCPCS: 36415; 74176; 74420; 80048; 81001; 82365; 82948; 85025; 87040; 87077; 87086; 87088; 87186; 88300; 96361; 96365; 96367; 99285; A9270; C1769; C2617; G0378; J0131; J0690; J0696; J1100; J1815; J2250; J2405; J2704; J7030; J7120; Q9966

== ENCOUNTER → 2021-08-03 08:21 | Outpatient (CLI) | payer BC, SELFPAY ==
--- NOTE | ~2021-08-03 | CT_ITS ---
EXAMINATION: CT abdomen pelvis wo con DATE: 08/03/2021 08:44 INDICATION: Calculus of kidney, history of right nephrectomy TECHNIQUE: Computed tomography (CT) of the abdomen and pelvis was performed without intravenous contr ast. The dose-length product (DLP) was 976.62 mGy-cm. Automated exposure control and iterative recons truction technique were employed. COMPARISON: 02/21/2021 FINDINGS: Minimal dependent atelectasis is present in the lung bases. The heart size is normal. Calci fied coronary artery atherosclerosis is noted. The right kidney is surgically absent. Stones and slud ge are present in the nondistended gallbladder. The liver, spleen, pancreas, and adrenal glands are n ormal. Cysts of the left kidney measure up to 6.2 cm. A left internal ureteral stent coils in an uppe r pole calyx of the left kidney. The distal stent is in the urinary bladder. There is no hydronephros is or hydroureter. There appears to be a 2 mm stone in the urinary bladder posterolaterally on the ri ght. No stones are identified in the left kidney. No pathologically enlarged abdominal or pelvic lymp h nodes are identified. There is no free intraperitoneal gas or evidence of bowel obstruction. Coloni c diverticulosis is present without evidence of diverticulitis. There is severe lumbar spondylosis. IMPRESSION: 1. Left internal ureteral stent coiling in an upper pole calyx of the left kidney and in the urinary bladder. No nephrolithiasis identified. 2. 2 mm stone in the urinary bladder. 3. Changes of right nephrectomy. 4. Stones and sludge in the nondistended gallbladder. Reviewed, dictated and finalized at location B. CALL IMPRESSION: 1. Left internal ureteral stent coiling in an upper pole calyx of the left kidn ey and in the urinary bladder. No nephrolithiasis identified. 2. 2 mm stone in the urinary bladder. 3. Changes of right nephrectomy. 4. Stones and sludge in the nondistended gallbladder.
--- NOTE | ~2021-08-03 | XR_ITS ---
EXAMINATION: XR abdomen/kub 1V INDICATION: Calculus of kidney TECHNIQUE: Supine views of the abdomen were obtained on 2 radiographs. COMPARISON: 11/28/2020 FINDINGS: A left internal ureteral stent coils in an upper pole calyx of the left kidney and in the u rinary bladder. No urolithiasis is identified. There are phleboliths of the pelvis. Right abdominal s urgical clips are consistent with history of right nephrectomy. IMPRESSION: 1. No urolithiasis identified. Left internal ureteral stent in expected position. Reviewed, dictated and finalized at location B. MENT CONTROL SUPERVISOR IMPRESSION: 1. No urolithiasis identified. Left internal ureteral stent in expected positio n.
== END ==
PROVIDERS: PCP Internal Medicine; Visit Provider Urology
DX: N20.0 Calculus of kidney (principal); Z96.0 Presence of urogenital implants; N21.0 Calculus in bladder; Z90.5 Acquired absence of kidney; K80.20 Calculus of gallbladder without cholecystitis without obstruction; K83.9 Disease of biliary tract, unspecified
CPT/HCPCS: 74018; 74176

== ENCOUNTER 2021-08-07 07:42 | Outpatient (CLI) | payer BC, SELFPAY ==
--- NOTE | ~2021-08-07 | NM_ITS ---
EXAMINATION: NM summer stress w perfusion DATE: 08/07/2021 10:29 INDICATION: Chest pain TECHNIQUE: Rest images were obtained following intravenous administration of 10.5 mCi Tc99m tetrofosm in (Myoview). The patient was infused intravenously with Lexiscan (Regadenoson). Then, 30.79 mCi Tc99 m tetrofosmin (Myoview) was administered intravenously, and stress images were obtained. Data was rec onstructed into short axis and horizontal and vertical long axis SPECT images. Gated SPECT images wer e also obtained. COMPARISON: None. FINDINGS: There is no definite reversible or fixed perfusion abnormality to suggest ischemia or infar ction. There is normal left ventricular chamber size, wall motion and ejection fraction. Left ventr icular ejection fraction measures 70%. IMPRESSION: 1. Normal myocardial perfusion at rest and during stress. 2. Left ventricular ejection fraction measuring 70%. Reviewed, dictated and finalized at location A. T ATTENDANT
--- NOTE | 2021-08-07 08:06 | EST_ITS ---
Patient Info Name: Nico Aggarwal Age: 66 years : 1955 Gender: Male Ht: 70 in Wt: 240 lbs BSA: 2.36 m2 HR: 73 bpm BP: 125 / 76 mmHg Heart Rhythm: Sinus Rhythm Exam Date: 08/07/2021 8:45 AM Exam Location: [facility] Stress Patient Status: Outpatient Admit Date: 08/07/2021 Staff Ordering Physician: Rafael Guajardo MD Attending Provider: Rafael Guajardo MD Exercise Technologist: Mayela Oden CT Exercise Physician: Esdras Leavitt DO Exam Type: CA stress summer w NM Study Info Indications R07.9 - Chest pain, unspecified A regadenoson stress test was performed. Summary 1. 1. Negative lexiscan stress test for ischemic ST changes by ECG criteria. 2. 2. Stable hemodynamics throughout the test. 3. 3. Nuclear scan to follow and will be reported separately. Please correlate with it. 4. 4. Patient informed of the above results. Protocol: Lexiscan Stress ECG Details Stage: REST Duration (min): 1 min : 14 sec HR (bpm): 75 SBP (mmHg): 125 DBP (mmHg): 76 Stage: REST Duration (min): 12 min : 25 sec HR (bpm): 68 SBP (mmHg): 125 DBP (mmHg): 76 Stage: STAGE 1 Duration (min): 1 min : 0 sec HR (bpm): 86 SBP (mmHg): 146 DBP (mmHg): 59 Stage: RECOVERY Duration (min): 1 min : 0 sec HR (bpm): 98 SBP (mmHg): 146 DBP (mmHg): 59 Stage: RECOVERY Duration (min): 2 min : 0 sec HR (bpm): 94 SBP (mmHg): 146 DBP (mmHg): 59 Stage: RECOVERY Duration (min): 3 min : 0 sec HR (bpm): 91 SBP (mmHg): 146 DBP (mmHg): 59 Stage: RECOVERY Duration (min): 3 min : 6 sec HR (bpm): 90 SBP (mmHg): 146 DBP (mmHg): 59 Rest HR: 68 bpm Peak HR: 98 bpm Rest Sys BP: 125 mmHg Peak Sys BP: 146 mmHg Max Pred HR: 153 bpm % Max Pred HR: 64 % Target HR: 130 bpm Max RPP: 14,308 bpm*mmHg Termination Reason: Completed protocol Cardiac Symptoms: Fast heart rate Total Time: 1 min : 0 sec Rest Alvarado BP: 76 mmHg Peak Alvarado BP: 59 mmHg Total Dose: 0.4 mg Resting ECG Sinus rhythm. Stress ECG No ST changes. Arrhythmias None. Report Signatures
== END 2021-08-07 07:43 | disposition home or self-care (01) ==
PROVIDERS: PCP Internal Medicine; Visit Provider Internal Medicine
DX: E11.65 Type 2 diabetes mellitus with hyperglycemia (principal); R07.89 Other chest pain; E78.2 Mixed hyperlipidemia; I10 Essential (primary) hypertension
CPT/HCPCS: 78452; 93017; A9502; J2785

== ENCOUNTER 2021-10-19 09:28 | Outpatient (CLI) | payer BC, SELFPAY ==
--- NOTE | ~2021-10-19 | CT_ITS ---
EXAMINATION: CT soft tissue neck w con DATE: 10/19/2021 10:22 INDICATION: Localized swelling, mass, and lump, neck. TECHNIQUE: Computed tomography (CT) of the neck was performed with 75 mL Omnipaque-350 intravenous co ntrast. Automated exposure control and iterative reconstruction technique were employed. The dose-navarro gth product was 619.40 mGy-cm. COMPARISON: None FINDINGS: A skin marker overlies left submandibular gland, which is larger than the right. No sialoli th. There are no pathologically enlarged lymph nodes. There is plaque in the proximal internal caroti d arteries with 0% stenosis relative to normal distal artery lumen diameters. There is severe cervica l spondylosis. IMPRESSION: 1. Asymmetry of the submandibular glands, left mildly larger than right. No abnormal mass or sialolit h identified. Reviewed, dictated and finalized at location B. IMPRESSION: 1. Asymmetry of the submandibular glands, left mildly larger than right. No abn ormal mass or sialolith identified.
[2021-10-19 09:46] LABS: Basophils Absolute Auto 0.1 K/mm3 (0.0-0.1); Basophils Percent Auto 1.4 % (0.2-1.2); Eosinophils Absolute Auto 0.3 K/mm3 (0-0.3); Eosinophils Percent Auto 4.1 % (0-4.4); Hematocrit 42.8 % (42.0-52.0); Hemoglobin 13.8 g/dL (14.0-18.0); Immature Granulocyte Absolute 0.06 K/mm3 (0.00-0.031); Immature Granulocyte Percent A 0.8 % (0-0.5); Lymphocytes Absolute Auto 1.41 K/mm3 (0.9-3.2); Mean Corpuscular HGB Conc 32.2 g/dl (32-36); Mean Corpuscular Hemoglobin 28.8 pg (26-34); Mean Corpuscular Volume 89.4 fl (80-100); Mean Platelet Volume 10.5 fl (7.4-10.4); Monocytes Absolute Auto 0.8 K/mm3 (0.1-0.6); Monocytes Percent Auto 10.5 % (2.6-8.5); Neutrophils Absolute Auto 5.1 K/mm3 (1.3-6.7); Neutrophils Percent Auto 65.2 % (45.5-73.1); Platelet Count Result 211 k/mm3 (150-375); Red Blood Count 4.79 M/mm3 (4.6-6.20); Red Cell Distribution Width 14.1 % (11.5-14.5); White Blood Count 7.8 K/mm3 (4.5-10.0)
[2021-10-19 10:04] LABS: Alanine Aminotransferase 47 U/L (4-50); Albumin Level 4.2 g/dL (3.5-5.1); Alkaline Phosphatase 65 U/L (38-126); Anion Gap 6 mmol/L (8-16); Aspartate Amino Transferase 48 U/L (17-59); Bilirubin,Total 0.5 mg/dL (0.2-1.3); Blood Urea Nitrogen 21 mg/dL (9-20); CRP < 0.5 mg/dL (<1.0); Carbon Dioxide 28 mmol/L (22-30); Chloride 104 mmol/L (98-107); Estimated Glomerular Filt Rate 55; Glucose 101 mg/dL (65-110); Lactate Dehydrogenase 397 U/L (313-618); Potassium 4.1 mmol/L (3.4-5.0); Sodium 138 mmol/L (137-145)
[2021-10-19 10:37] LABS: Erythrocyte Sedimentation Rate 16 mm/hr (0-20)
== END 2021-10-19 09:29 | disposition home or self-care (01) ==
PROVIDERS: PCP Internal Medicine; Visit Provider Internal Medicine
DX: R22.1 Localized swelling, mass and lump, neck (principal); K11.20 Sialoadenitis, unspecified
CPT/HCPCS: 36415; 70491; 80053; 83615; 85025; 85652; 86140; Q9967

== ENCOUNTER 2025-04-25 00:39 | Day surgery (SDC) | payer BC, SELFPAY ==
--- OUTSIDE RECORDS SUMMARY | 2005-09-21 11:30 | XMS_ITS | Continuity of Care Document ---
Author Organization [facility] Address [id number] [place] [address] [address] [place] [address] Phone Care Team Providers Care Laborer Name Role Phone Liz Corbett Unavailable Unavailable Advance Directives Directive Yes / No Effective Date File Name No Information Encounters Encounter Description Practice Location Reason(s) For Visit Diagnoses Date Provider Providers Copied on Encounter Formerly [facility], [address], [place], [place], [id number], [place] tel:[phone] [facility] No Information Sep-2 1-200 [address] [place]. [address] , [address], [place], [address], [place]. tel:[phone] Referring Provider: Rafael Guajardo MD , [address], [place], [address]. tel:[phone] Family History Family Member Type Diagnosis Age At Onset No Information Payers Payer name Insurance type Covered republican ID Authoriza tion(s) No Information Social History Type Description Quantity Date Captured Comments Sex Male Smoking Status No Information Chief Complaint And Reason For Visit No Information Reason For Referral Reason For Referral No Information History Of Present Illness Encounter Date Complaint History Of Prese nt Illness No Information Functional Status Date Functional Assessmen t No Information Instructions Date Instruction Additional Infor mation No Information Assessments Type Assessment Date No Information Patient Care Teams Name Effective Dates (start - stop) Status Members No Information
--- OUTSIDE RECORDS SUMMARY | 2024-12-13 03:30 | XMS_ITS | Continuity of Care Document ---
Author Organization [facility] Address [address] [address] [place] [address] Phone Care Team Providers Care Hot Dip Plater Name Role Phone Neil Galicia OD Unavailable Unavailable Allergies, Adverse Reactions, Alerts Substance Reaction Status Criticality No Known Allergies Active No Inform ation Medications Medication Instructions Dosage Effective Dates (start - stop) Status Comments omega-3 acid ethyl esters 1 gram capsule 2PO QD - Active Cequa 0.09 % eye drops in a dropperette instill 1 drop by ophthalmic route 2 times every day into both eyes - Active Miebo (PF) 100 % eye drops instill 1 drop by ophthalmic route 4 times every day into both eyes - Active oasis tears OPHTHALMIC DROPS QAM OU - Active glimepiride 2 mg tablet - Active Ozempic 2 mg/dose (8 mg/3 mL) subcutaneous pen injector - Active amlodipine 2.5 mg tablet - Active Dexcom G7 Sensor device USE TO MONITOR GLUCOSE - Active Xigduo XR 10 mg-1,000 mg tablet,extended release TAKE 1 TABLET BY MOUTH DAILY - Active Synthroid 88 mcg tablet - Active losartan 50 mg tablet TAKE 1 TABLET DAILY - Active ezetimibe 10 mg tablet - Active rosuvastatin 20 mg tablet TAKE 1 TABLET DAILY - Active Xiidra 5 % eye drops in a dropperette instill 1 drop by ophthalmic route 2 times every day into both eyes approximately 12 hours apart 1.00 drop - No Longer Active Vevye 0.1 % eye drops 1 gtt nid ou - No Longer Active Bepreve 1.5 % eye drops instill 1 drop by ophthalmic route 2 times every day into both eyes 1.00 drop - No Longer Active Procedures Procedure Date MICROFLUID SALLY TEARS OFFICE/OUTPATIENT VISIT, EST Advance Directives Directive Yes / No Effective Date File Name No Information Encounters Encounter Description Practice Location Reason(s) For Visit Diagnoses Date Provider Providers Copied on Encounter OFFICE/OUTPA TIENT VISIT, EST [facility], [address] [place] [address], [id number], tel:[phone] [facility] Dry eyes (chief complaint) Keratoconjunct ivitis sicca, not specified as Sjogren's, bilateralCombi domi forms of age-related cataract, left eyeOpen-angle glaucoma 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 at low risk for progressionChr onic allergic conjunctivitis Squamous blepharitis of upper and lower eyelids of both eyesSquamous blepharitis left eye, upper and lower eyelidsMeibomi an gland dysfunction (MGD) of upper and lower lids of both eyesMeibomian gland dysfunction left eye, upper and lower eyelidsPseudop hakia of right eye 5 Grayson Trejo. [address] [place] [address], [address], [place], [place], [id number], [place]. tel:[phone] Referring Provider: Neil Galicia, [address] [place] [address] [address], [place], [address]. tel:[phone] [facility], [address] [place] [address], [id number], tel:[phone] [facility] No Information 5 Grayson Trejo. [address] [place] [address], [address], [place], [place], [id number], . tel:[phone] Family History Family Member Type Diagnosis Age At Onset Problem Family history of Diabetes jenelle bustillos Payers Payer name Insurance type Covered democrat ID Bria MCQUEEN (s) [id number] Social History Type Description Quantity Date Captured Comments Alcohol Use Details Unknown Caffeine Use Details Unknown Tobacco Use Status No Information Smoking Status No Information Sex Male Chief Complaint And Reason For Visit From encounter dated '12/13/2024 08:30'. Dry eyes (chief complaint). Description: The 69 year old patient presents for evaluation of Dry eyes in the right eye and left eye. It affects VA not affected. The condition is mild. Patient denies: any drop problems and is using drops correctly.Pt states that Vevye wasn't covered, using [place] QAM. General dryness, no concerns overall Reason For Referral Reason For Referral No Information Plan Of Treatment Date Type Action Status Appointment Flako Aggarwal BOOKED Appointment Flako Aggarwal BOOKED History Of Present Illness Encounter Date Complaint History Of Prese nt Illness Dry eyes The 69 year old patient presents for evaluation of Dry eyes in the right eye and left eye. It affects VA not affected. The condition is mild. Patient denies: any drop problems and is using drops correctly.Pt states that Vevye wasn't covered, using [place] QAM. General dryness, no concerns overall Functional Status Date Functional Assessmen t No Information Instructions Date Instruction Additional Infor yady Impression/Plan Related to Kerat oconjunctivitis sicca, not specified as Sjogren's, bilateral Impression/Plan Related to Combi domi forms of age-related cataract, left eye Impression/Plan Related to Open- angle glaucoma 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 at low risk for progression Impression/Plan Related to Chron ic allergic conjunctivitis Impression/Plan Related to Squam ous blepharitis of upper and lower eyelids of both eyes Impression/Plan Related to Squam ous blepharitis left eye, upper and lower eyelids Impression/Plan Related to Meibo derik gland dysfunction (MGD) of upper and lower lids of both eyes Impression/Plan Related to Meibo derik gland dysfunction left eye, upper and lower eyelids Impression/Plan Related to Pseud ophakia of right eye Assessments Type Assessment Date assessment Keratoconjunctivitis sicca, not specified as Sjogren's, bilateral assessment 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, left eye assessment Open-angle glaucoma 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 at low risk for progression assessment Chronic allergic conjunctivitis assessment Squamous blepharitis of upper an d lower eyelids of both eyes assessment Squamous blepharitis left eye, u pper and lower eyelids assessment Meibomian gland dysf unction (MGD) of upper and lower lids of both eyes assessment Meibomian gland dysfunction left eye, upper and lower eyelids impression Keratoconjunctivitis sicca, not specified as Sjogren's, bilateral: H16.223 impression 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, left eye: H25.812 impression Open-angle glaucoma 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 at low risk for progression: H40.013 impression Chronic allergic conjunctivitis: H10.45 impression Squamous blepharitis of upper and lower eyelids of both eyes: H01.02A impression Squamous blepharitis left eye, upper and lower eyelids: H01.02B impression Meibomian gland dysf unction (MGD) of upper and lower lids of both eyes: H02.88A impression Meibomian gland dysf unction left eye, upper and lower eyelids: H02.88B assessment Pseudophakia of right eye impression Pseudophakia of right eye: Z96.1 Patient Care Teams Name Effective Dates (start - stop) Status Members No Information
[2025-04-16 13:46] VITALS: BMI 33.0
--- NOTE | 2025-04-24 15:56 | PC.NURSE ---
Pt called worried about blood sugar. He is diet and exercise controlled-no meds. His BS was 70 and low for him. I told him to drink some juice or 7up-no diet and monitor his sugar as the night goes on. He did not realize he could be drinking fluids still and said he shouldn't have any issues now that he knows he can drink liquids in addition to his prep. I instructed him if he BS goes low after midnight to take a glucose tab. and if he has other issues with the prep there is an after hours call number that he can call.
--- OUTSIDE RECORDS SUMMARY | 2025-04-25 00:42 | XMS_ITS | Clinical Summary ---
Author Organization [facility] Address [address] [place] [address] Care Team Providers Care Avionics Mechanic Name Role Phone Rafael Guajardo MD Primary Care Provider [phone] Social History Tobacco Use Types Packs/Day Years Used Date Smoking Tobacco: Never Assessed Sex and Gender Information Value Date Recorded Sex Assigned at Not on file Legal Sex Male 1:52 PM CDT Gender Identity Not on file Sexual Orientation Not on file Plan of Treatment Health Maintenance Due Date Last Done Comments Colorectal Cancer Screening Colonoscopy (10 Years) 1955 Hepatitis C 1972 Zoster Vaccines (1 of 2) 2004 DTaP, Tdap and Td Vaccines (2 - Td or Tdap) 08/12/2024 08/12/2014 COVID-19 Vaccine ( season) 2025 04/12/2022, 04/08/2021, 09/26/2020 Influenza Adult (#1) 2025 04/06/2019, 04/08/2018, 04/14/2017, Additional history exists Pneumococcal Vaccine: 50+ Years Completed 09/24/2019, 08/05/2017 RSV Immunization or 60+ Years Completed 03/21/2023 Hepatitis A Vaccines Aged Out No long er eligible based on patient's age to complete this topic Meningococcal B Vaccine Aged Out No l onger eligible based on patient's age to complete this topic Meningococcal Vaccine Aged Out No nahun carlotta eligible based on patient's age to complete this topic RSV Immunizations Under 20 Months Aged Out No longer eligible based on patient's age to complete this topic Insurance [facility] Care Teams Avionics Mechanic Relationship Specialty Start Date End Date Rafael Guajardo MD [address] [place] [id number] PCP - General INTERNAL MEDICINE 12/27/23
--- OUTSIDE RECORDS SUMMARY | 2025-04-25 00:42 | XMS_ITS | Clinical Summary ---
Author Organization [facility] Address [address] [place] [address] Care Team Providers Care Sales Operations Analyst Name Role Phone Rafael Guajardo MD Primary Care Provider [phone] Allergies No known active allergies Medications sodium, potassium & mag sulfates (SUPREP BOWEL KIT) 17.5-3.13-1.6 gram recon solnIndications :Bowel Evacuation Drink 1 bottle at 6pm the night before procedure. Drink 2nd bottle 4 hours prior to leaving home. 354 mL 02/06/2019 Active Active Problems Problem Noted Date Diagnosed Date Encounter for screening colonoscopy 02/05/2019 Overview (02/05/2019): Added automatically from request for surgery [id number] Social History Tobacco Use Types Packs/Day Years Used Date Smoking Tobacco: Never Assessed Sex and Gender Information Value Date Recorded Sex Assigned at Not on file Legal Sex Male 3:37 PM [employer] Gender Identity Not on file Sexual Orientation Not on file Obstetrics History Last Filed Vital Signs Vital Sign Reading Time Taken Comments Blood Pressure 147/83 02/20/2019 9:20 AM CDT Pulse 79 02/20/2019 9:20 AM CDT Temperature 36.2 C (97.2 F) 02/20/2019 9:07 AM CDT Respiratory Rate 17 02/20/2019 9:20 AM CDT Oxygen Saturation 96% 02/20/2019 9:20 AM CDT Inhaled Oxygen Concentration - - Weight 118.8 kg (262 lb) 02/05/2019 3:04 PM CDT Height 180.3 cm (5' 11) 02/05/2019 3:04 PM CDT Body Mass Index 36.54 02/05/2019 3:04 PM CDT Plan of Treatment Health Maintenance Due Date Last Done Comments Depression Screening 1955 Fall Risk Assessment 1955 Hepatitis C Screening 1955 Hepatitis B Screening 1972 Zoster Vaccine (1 of 2) 2004 Abdominal Aortic Aneurysm (A AA) Screen 2019 Well Visit 65+ 2019 DTaP/Tdap/Td Vaccine (2 - Td or Tdap) 08/12/2024 08/12/2014 Covid-19 Vaccine (5 - 2024-2 6 season) 2025 04/12/2022, 04/08/2021, 11/26/2020, Additional history exists Influenza Vaccine (#1) 2025 3, 03/27/2022, 03/23/2021, Additional history exists Colon Cancer Screening-Colonoscopy 02/20/2029 02/20/2019, 02/20/2019 Colon Cancer Screening-CT Colonography Discontinued 02/20/2019, 02/20/2019 Colon Cancer Screening-DNA Stool Discontinued 02/21/20 19, 02/20/2019 Colon Cancer Screening-FIT Discontinued 02/20/2019, Colon Cancer Screening-Sigmoidoscopy Discontinued 02/20/2019, 02/20/2019 Pneumococcal vaccine 65+ Completed 09/24/2019, 0208/2017 Procedures Procedure Name Priority Date/Time Associated Diagnosis Comments COLONOSCOPY 02/20/2019 7:08 AM CDT from Last 3 Months or Most Recently Relevant to Health Maintenance Results * COLONOSCOPY (02/20/2019 7:08 AM CDT) Anatomical Region Laterality Modality Other Narrative Procedure Note Ivonne Fermin MD - 02/20/2019 7:08 AM CDT [facility] Patient Name: Nico Aggarwal Procedure Date: 02/20/2019 7:08 AM Date of : 1955 Admit Type: Ambulatory Age: 63 Gender: Male Attending MD: Ivonne Fermin M.D. Note Status: Reverberatory Skimmer Override Procedure: Colonoscopy Indications: Screening for colorectal malignant neoplasm Referring MD: Providers: Ivonne Fermin M.D. Medicines: Propofol per Anesthesia Complications: No immediate complications. Estimated blood loss: Minimal. Estimated Blood Loss: Estimated blood loss was minimal. Procedure: Pre-Anesthesia Assessment: - Prior to the procedure, a History and Physical was performed, and patient medications, allergies and sensitivities were reviewed. The patient's toleranceof previous anesthesia was reviewed. - The risks and benefits of the procedure and the sedation options and risks were discussed with the patient. All questions were answered and informed consent was obtained. - Immediately prior to administration ofmedications, the patient was re-assessed for adequacy to receive sedatives. The benefits, risks and alternatives of theprocedure and sedation were discussed and informed consent was obtained. All questions were answered. Please referto the signed informed consent document in the medical record. The scope was passed under direct vision.The Colonoscope was introduced through the anus and advanced to the the cecum, identified by appendiceal orifice and ileocecal valve. The colonoscopy was performed without difficulty. The patient toleratedthe procedure well. The quality of the bowel preparation was adequate. The bowel preparation used wasSUPREP. Findings: The perianal and digital rectal examinations were normal. A 4 mm polyp was found in the cecum. The polyp was sessile. The polyp was removed with a cold biopsy forceps. Resection and retrieval were complete. Estimated blood loss was minimal. A 4 mm polyp was found in the sigmoid colon. The polyp was sessile.The polyp was removed with a cold biopsy forceps. Resection and retrieval were complete. Estimated blood loss was minimal. The entire examined colon appeared normal on direct and retroflexion views. Impression: - One 4 mm polyp in the cecum, removed with a cold biopsy forceps. Resected and retrieved. - One 4 mm polyp in the sigmoid colon, removed witha cold biopsy forceps. Resected and retrieved. - The entire examined colon is normal on direct and retroflexion views. Recommendation: - Patient has a contact number available for emergencies. The signs and symptoms of potential delayed complications were discussed with thepatient. Return to normal activities tomorrow. Writtendischarge instructions were provided to the patient. - High fiber diet. - Use fiber, for example Citrucel, Fibercon, Konsylor Metamucil. - Repeat colonoscopy in 5 years for surveillancebased on pathology results. - Await pathology results. - Telephone my office for pathology results in 1week. Electronically signed by Ivonne Fermin MD Ivonne Fermin M.D. 02/20/2019 8:56:47 AM Number of Addenda: 0 Note Initiated On: 02/20/2019 7:08 AM Recognized by the [employer] for promoting quality in endoscopy Ivonne Fermin MD ENDOSCOPY PROCEDURES E dited Result - Final from Last 3 Months or Most Recently Relevant to Health Maintenance Insurance [employer] ACCESS CHOICE ANTH ACCESS CHOICE Advance Directives For more information, please contact: [phone] * Full Code (Latest Code Status on File) Date Activated Date Inactivated Comments 02/20/2019 7:13 AM 02/20/2019 1:27 PM Care Teams Sales Operations Analyst Relationship Specialty Start Date End Date Rafael Guajardo MD PCP - General 02/20/19
--- OUTSIDE RECORDS SUMMARY | 2025-04-25 00:42 | XMS_ITS | Clinical Summary ---
Author Organization [facility] Address [address] [place] [id number] Phone Care Team Providers Care Verifying Machine Operator Name Role Phone Rafael Guajardo MD Primary Care Provider [phone] Allergies No known active allergies Medications Continuous Blood Gluc Sensor (FreeStyle Sean 14 Day Sensor) [facility] 0 Active BD Pen Needle Lelo U/F 32G X 4 MM [facility] 0 Active Synthroid 100 MCG tablet 1 Active losartan (COZAAR) 100 MG tablet 0 Active metFORMIN (GLUCOPHAGE) 1000 MG tablet 0 Active rosuvastatin (CRESTOR) 40 MG tablet 0 Active tamsulosin (FLOMAX) 0.4 MG 24 hr capsule Take 0.4 mg by mouth every night 1 Active glimepiride (AMARYL) 2 MG tablet 1 Active Toujeo Max SoloStar 300 UNIT/ML solution pen-injector INJECT 35 UNITS SUBCUTANEOUS DAILY 1 Active Toujeo SoloStar 300 UNIT/ML solution pen-injector 1 Active levothyroxine (SYNTHROID) 88 MCG tablet Take 88 mcg by mouth 1 (one) time each day 1 Active traMADol (ULTRAM) 50 MG tablet Take 50 mg by mouth every 6 (six) hours if needed 1 Active Ozempic, 1 MG/DOSE, 4 MG/3ML solution pen-injector 1 Active potassium citrate (UROCIT-K) 5 MEQ (540 MG) CR tablet Take 2 tablets (10 mEq total) by mouth 2 (two) times a day with meals Do not crush, chew, or split. 120 tablet 6 1 Active Glucagon, rDNA, (Glucagon Emergency) 1 MG kit 2 Active HumaLOG KWIKPEN 100 UNIT/ML solution pen-injector 2 Active Active Problems Problem Noted Date Diagnosed Date Vitamin D deficiency Personal history of nephrectomy Overview (07/21/2020): right Nephrolithiasis Mixed hyperlipidemia Diabetes mellitus Chronic kidney disease Benign prostatic hyperplasia Immunizations Immunization Administration Dates Next Due Fluzone High-Dose 03/07/2020 Pneumococcal Polysaccharide 09/24/2019 Sars-cov-2, Unspecified 11/26/2020 Family History Medical History Relation Comments Diabetes mellitus Mother Relation Status Comments Mother Social History Tobacco Use Types Packs/Day Years Used Date Smoking Tobacco: Never Smokeless Tobacco: Never Alcohol Use Standard Drinks/Week Comments Never 0 (1 standard drink = 0.6 oz pur e alcohol) AUDIT-C Answer Date Recorded Q1: How often do you have a drink containing alc ohol? Never 07/14/2020 Q2: How many drinks containi ng alcohol do you have on a typical day when you are drinking? Not asked 07/14/2020 Q3: How often do you have six or more drinks on one occasion? Never 07/14/2020 Sex and Gender Information Value Date Recorded Sex Assigned at Not on file Legal Sex Male 1:17 PM [facility] Gender Identity Not on file Sexual Orientation Not on file Last Filed Vital Signs Vital Sign Reading Time Taken Comments Blood Pressure 136/74 11/25/2021 4:01 PM CDT Pulse - - Temperature 36.7 C (98.1 F) 11/25/2021 4:01 PM CDT Respiratory Rate 18 11/25/2021 4:01 PM CDT Oxygen Saturation - - Inhaled Oxygen Concentration - - Weight 117 kg (259 lb) 11/25/2021 4:01 PM CDT Height 180.3 cm (5' 11) 11/25/2021 4:01 PM CDT Body Mass Index 36.12 11/25/2021 4:01 PM CDT Plan of Treatment Health Maintenance Due Date Last Done Comments Pneumococcal PPSV23/PCV13 65 + Years / Low and Medium Risk (2 of 3 - PCV) 09/23/2020 09/24/2019 Influenza Vaccine (#1) 2025 Insurance [facility] MEDICARE Care Teams Verifying Machine Operator Relationship Specialty Start Date End Date Rafael Guajardo MD [address] [facility] [address] [place] [address] PCP - General Internal Medicine 07/10/20
[2025-04-25 07:40] VITALS: BP 136/74; PULSE 70; RESP 14; TEMP 36.2; O2SAT 100; BMI 33.7
[2025-04-25] MEDS: LACTATED RINGERS 1,000 ML 150 ML IV CONT (08:05)
--- NOTE | 2025-04-25 08:32 | P.HP_ITS ---
H&P: HPI History of Present Illness Date/Time: 04/25/25 08:32 Chief Complaint: History of colon polyps Narrative: The patient has a history of colonic polyps, the last colonoscopy was 3 years ago in another institution. Review of Systems Review of Systems: All systems reviewed & are unremarkable except as noted in HPI and below [facility] Past Medical History Medical History Encounter for routine adult health examination with abnormal findings Chronic rhinitis BMI 32.0-32.9,adult Abnormal finding of blood chemistry BMI 33.0-33.9,adult Cataract Skin plaque Bilateral hearing loss Cellulitis of lower extremity History of exposure to measles Hypercalcemia Impacted cerumen, bilateral Microalbuminuria due to type 2 diabetes mellitus Mixed hyperlipidemia Nocturia On shelter drug therapy Stage 1 chronic kidney disease Viral conjunctivitis of left eye Parotiditis BMI 36.0-36.9,adult Mass of neck Chest heaviness BMI 35.0-35.9,adult COVID-19 vaccine administered Left ureteral stone Left renal stone RUQ abdominal pain Gallbladder sludge Gallbladder anomaly HTN (hypertension) Hx of mitral valve prolapse Obstruction, uropathy Calculus of proximal left ureter Itchy skin Low back pain CKD (chronic kidney disease) Vitamin D deficiency Elevated PSA Hx of colonic polyps Elevated serum creatinine Dehydration Dysuria Influenza A Hypothyroidism (acquired) Benign essential hypertension URI (upper respiratory infection) Weight loss, intentional Type 2 diabetes mellitus with hyperglycemia Dietary counseling and surveillance Controlled diabetes mellitus with hyperglycemia, with long-term current use of insulin Surgical History Surgical History S/P cataract surgery H/O eye surgery 10/2022, right eye lens replacement H/O right nephrectomy Family History Family History Mother Diabetes mellitus Family history of diabetes mellitus in first degree relative Sibling Malignant neoplasm of prostate Other Family history of cardiovascular disease Social History Social History Smoking status: Never smoker Second hand tobacco smoke exposure: No Alcohol intake: never Substance use: never Do You Feel Safe in your Home?: Yes Lack of Transportation: No Lack of Food: Never True Current Housing: I Have Housing Concerned About Future Housing: No Difficulty Paying Gas/Electric Bills: No Difficulty Paying for Meds: No Currently Unemployed: No Education: Bachelor's Degree Difficulty w/ Childcare or Family Care: No Living arrangements: with family Gender identity (if verbalized by the patient): Male Spiritual care concerns: No Meds Home Medications and Allergies Home Medications ?Medication ?Instructions ?Recorded ?Confirmed ?Type glucagon HCl 1 mg solution for 1 mg subcut Q20M PRN hy poglycemia 07/09/21 04/16/25 Rx injection (Glucagon (HCl) #1 ea Emergency Kit) acetaminophen 500 mg tablet 1,000 mg PO HS PRN pain 04/16/25 History blood-glucose meter (Paloma MobileTouch #1 ea 08/26/22 04/16/25 Rx Verio Reflect Meter) lancets 30 gauge (Paloma MobileTouch Delica #400 ea 08/26/22 Rx Lancets) cholecalciferol (vitamin D3) 125 125 mcg PO DAILY 11/2304/25/25 History mcg (5,000 unit) capsule lactobacillus combo no.11 15 1 cap PO DAILY 10/06/22 1 History billion cell sprinkle capsule (Probiotic) multivitamin 1 tablet PO DAILY 10/06/22 1 History turmeric root extract 500 mg 500 mg PO DAILY 10/06/22 04/25/25 History capsule pen needle, diabetic 32 gauge x #100 ea 04/25/2304/16 Rx 5/32 (BD Ultra-Fine Lelo Pen Needle) insulin glargine U-300 conc 300 5 unit subcut DAILY 04/25/25 History unit/mL (3 mL) subcutaneous pen (Toujeo Max U-300 SoloStar) [place] 3 1,000 mg BYMOUTH DAILY 04/1304/25/25 History blood sugar diagnostic (OneTouch #400 ea 06/04/2404/03 Rx Verio test strips) rosuvastatin 20 mg tablet 20 mg PO DAILY #90 tabs 11/2504/25/25 Rx semaglutide 2 mg/dose (8 mg/3 mL) 2 mg (0.75 mL) subcu t WEEKLY #9 mL 09/10/24 04/25/25 Rx subcutaneous pen injector (Ozempic) amlodipine 2.5 mg tablet 2.5 mg PO DAILY #90 tabs 04/25/25 Rx blood-glucose sensor (Dexcom G7 #9 ea 11/15/24 5 Rx Sensor device) glimepiride 2 mg tablet 2 mg PO QAM #90 tabs 12/03/2 5 04/25/25 Rx ezetimibe 10 mg tablet (Zetia) 10 mg PO DAILY #90 tabs 12/31/24 04/25/25 Rx losartan 100 mg tablet 100 mg PO DAILY #90 tabs 04/25/25 Rx levothyroxine 88 mcg tablet See Rx Instructions .Route 01/28/25 04/25/25 Rx (Synthroid) .COMPLEX #90 tabs dapagliflozin propaned 10 1 tablet PO DAILY 90 days #9 0 tabs 02/05/25 04/25/25 Rx mg-metformin ER 1,000 mg tablet,ext rel 24hr (Xigduo XR) Allergies Allergy/AdvReac Type Severity Reaction Status Date / Time sulfamethoxazole (From AdvReac Intermediate Sweating Verified 04/25/25 07:46 Sulfamethoxazole-Trimethoprim) trimethoprim (From AdvReac Intermediate Sweating Verified 04/25/25 07:46 Sulfamethoxazole-Trimethoprim) Vital Signs Vital Signs - 24 hr 04/25/25 07:40 Temperature 97.1 F L Pulse Rate 70 Respiratory Rate 14 Blood Pressure 136/74 Pulse Oximetry 100 Oxygen Delivery Room Air Exam Const: General: cooperative and healthy appearing Resp: Effort & Inspection: normal respiratory effort and able to speak in complete sentences Auscultation: clear to auscultation bilaterally Cardio: Rate: regular rate Rhythm: regular rhythm GI: Inspection: normal to inspection GI Palp: No No hepatosplenomegaly present Auscultation: normal bowel sounds Rectal Exam: deferred Skin: General skin exam: normal color Psych: Appearance: grossly normal Mental Status: mental status grossly normal Assessment and Plan Assessment and plan (1) History of colonic polyps: Code(s): Z86.0100 - Personal history of colon polyps, unspecified Status: Acute Assessment and Plan: The patient is deemed a good candidate for the procedure. Consent signed. Will proceed.
--- NOTE | 2025-04-25 08:33 | WPDANESEPPF ---
Anes - Initial Pre Proc Eval Procedure: Operation Date: 04/25/25 09:00 Proposed Procedures p Screening Colonoscopy - Jaylan Turner MD Date/Time: 04/25/25 08:33 Surgeon: Jaylan Turner MD Pre Op Diagnosis: Personal history of colon polyps, unspecified Patient Data Age: 69 Gender: M Height: 1.78 m Weight: 106.7 kg Last Vital Signs Temp 36.2 C L 04/25/25 07:40 Pulse 70 04/25/25 07:40 Resp 14 04/25/25 07:40 BP 136/74 04/25/25 07:40 Pulse Ox 100 04/25/25 07:40 O2 Del Method Room Air 04/25/25 07:40 Allergies Allergy/AdvReac Type Severity Reaction Status Date / Time sulfamethoxazole (From AdvReac Intermediate Sweating Verified 04/25/25 07:46 Sulfamethoxazole-Trimethoprim) trimethoprim (From AdvReac Intermediate Sweating Verified 04/25/25 07:46 Sulfamethoxazole-Trimethoprim) Home Medications ?Medication ?Instructions ?Recorded ?Confirmed ?Type glucagon HCl 1 mg solution for 1 mg subcut Q20M PRN hypoglycemia 07/09/21 04/16/25 Rx injection (Glucagon (HCl) #1 ea Emergency Kit) acetaminophen 500 mg tablet 1,000 mg PO HS PRN pain 07/30/21 04/16/25 History blood-glucose meter (OneTouch #1 ea 08/26/22 04/16/25 Rx Verio Reflect Meter) lancets 30 gauge (OneTouch Delica #400 ea 08/26/22 04/16/25 Rx Lancets) cholecalciferol (vitamin D3) 125 125 mcg PO DAILY 10/06/22 04/25/25 History mcg (5,000 unit) capsule lactobacillus combo no.11 15 1 cap PO DAILY 10/06/22 04/25/25 History billion cell sprinkle capsule (Probiotic) multivitamin 1 tablet PO DAILY 10/06/22 04/25/25 History turmeric root extract 500 mg 500 mg PO DAILY 10/06/22 04/25/25 History capsule pen needle, diabetic 32 gauge x #100 ea 04/25/23 04/16/25 Rx 5/32 (BD Ultra-Fine Lelo Pen Needle) insulin glargine U-300 conc 300 5 unit subcut DAILY 09/27/23 04/25/25 History unit/mL (3 mL) subcutaneous pen (Toujeo Max U-300 SoloStar) [place] 3 1,000 mg BYMOUTH DAILY 04/13/24 04/25/25 History blood sugar diagnostic (OneTouch #400 ea 06/04/24 04/16/25 Rx Verio test strips) rosuvastatin 20 mg tablet 20 mg PO DAILY #90 tabs 07/08/24 04/25/25 Rx semaglutide 2 mg/dose (8 mg/3 mL) 2 mg (0.75 mL) subcut WEEKLY #9 mL 09/10/24 04/25/25 Rx subcutaneous pen injector (Ozempic) amlodipine 2.5 mg tablet 2.5 mg PO DAILY #90 tabs 11/15/24 04/25/25 Rx blood-glucose sensor (Dexcom G7 #9 ea 11/15/24 04/16/25 Rx Sensor device) glimepiride 2 mg tablet 2 mg PO QAM #90 tabs 12/03/24 04/25/25 Rx ezetimibe 10 mg tablet (Zetia) 10 mg PO DAILY #90 tabs 12/31/24 04/25/25 Rx losartan 100 mg tablet 100 mg PO DAILY #90 tabs 12/31/24 04/25/25 Rx levothyroxine 88 mcg tablet See Rx Instructions .Route 01/28/25 04/25/25 Rx (Synthroid) .COMPLEX #90 tabs dapagliflozin propaned 10 1 tablet PO DAILY 90 days #90 tabs 02/05/25 04/25/25 Rx mg-metformin ER 1,000 mg tablet,ext rel 24hr (Xigduo XR) Patient hx anesthesia problems: none Family hx anesthesia problems: none Results Review: All pre-operative results and documents have been reviewed as part of the pre-operative evaluation. [facility] Past Medical History Medical History Encounter for routine adult health examination with abnormal findings Chronic rhinitis BMI 32.0-32.9,adult Abnormal finding of blood chemistry BMI 33.0-33.9,adult Cataract Skin plaque Bilateral hearing loss Cellulitis of lower extremity History of exposure to measles Hypercalcemia Impacted cerumen, bilateral Microalbuminuria due to type 2 diabetes mellitus Mixed hyperlipidemia Nocturia On buttermaker continuous churn drug therapy Stage 1 chronic kidney disease Viral conjunctivitis of left eye Parotiditis BMI 36.0-36.9,adult Mass of neck Chest heaviness BMI 35.0-35.9,adult COVID-19 vaccine administered Left ureteral stone Left renal stone RUQ abdominal pain Gallbladder sludge Gallbladder anomaly HTN (hypertension) Hx of mitral valve prolapse Obstruction, uropathy Calculus of proximal left ureter Itchy skin Low back pain CKD (chronic kidney disease) Vitamin D deficiency Elevated PSA Hx of colonic polyps Elevated serum creatinine Dehydration Dysuria Influenza A Hypothyroidism (acquired) Benign essential hypertension URI (upper respiratory infection) Weight loss, intentional Type 2 diabetes mellitus with hyperglycemia Dietary counseling and surveillance Controlled diabetes mellitus with hyperglycemia, with long-term current use of insulin Surgical History Surgical History S/P cataract surgery H/O eye surgery 10/2022, right eye lens replacement H/O right nephrectomy Family History Family History Mother Diabetes mellitus Family history of diabetes mellitus in first degree relative Sibling Malignant neoplasm of prostate Other Family history of cardiovascular disease Social History Social History Smoking status: Never smoker Second hand tobacco smoke exposure: No Alcohol intake: never Substance use: never Do You Feel Safe in your Home?: Yes Lack of Transportation: No Lack of Food: Never True Current Housing: I Have Housing Concerned About Future Housing: No Difficulty Paying Gas/Electric Bills: No Difficulty Paying for Meds: No Currently Unemployed: No Education: Bachelor's Degree Difficulty w/ Childcare or Family Care: No Living arrangements: with family Gender identity (if verbalized by the patient): Male Spiritual care concerns: No Anes - Eval Final PreProcedure Day of Procedure 04/25/25 08:33 Patient weight: obese Heart: regular rate and rhythm Lungs: clear to auscultation Airway: Mallampati scale class III Neurological: alert and oriented Last oral intake: >/= 8 hours ASA classification: III Emergent: no Anesthetic plan: proceed Anesthesia type and monitoring: general GIVS and standard monitoring Results Review: All pre-operative results and documents have been reviewed as part of the pre-operative evaluation. Informed Consent: The patient's anesthetic plan and its attendant risks and benefits were discussed with the patient/family/POA. Questions were solicited and answers provided to the satisfaction of the patient/family/POA.
--- NOTE | 2025-04-25 08:52 | S_PTH ---
PATIENT: Nico Aggarwal LOC: [facility] #:[id number] AGE/SX: 69/M ROOM: RE04/25/[address]: Jaylan Turner MD : 1955 BED: DIS: 04/25/2025 SPEC #: [id number] RECD: 04/25/25 11:22 STATUS: VIANEY REQ #: [id number] SAMARA: 04/25/25 08:[address]: Jaylan Turner DEPT: [facility] Surgical RECD BY: Noni Houser ENTERED: 04/25/25 11:22 SP TYPE: Surgical OTHR DR: Rafael Guajardo MD Tissues: A - Colon Polypectomy B - Colon Polypectomy Procedures: Hematoxylin and Eosin Stain Gross and Microscopic Level 4
[2025-04-25 08:56] VITALS: BP 106/67; PULSE 67; RESP 22; O2SAT 97
[2025-04-25 09:06] VITALS: BP 115/74; PULSE 65; RESP 21; O2SAT 99
[2025-04-25 09:25] VITALS: BP 124/72; PULSE 66; RESP 21; O2SAT 99
== END 2025-04-25 09:28 | disposition home or self-care (01) ==
PROVIDERS: PCP Internal Medicine; Referring Provider Internal Medicine; Visit Provider Internal Medicine Gastroenterology
PROC: 0DJD8ZZ Inspection of Lower Intestinal Tract, Via Natural or Artificial Opening Endoscopic (ICD-10-PCS; CPT 45378; principal; 2025-04-25 09:00)
DX: Z12.11 Encounter for screening for malignant neoplasm of colon (principal); D12.3 Benign neoplasm of transverse colon; K63.5 Polyp of colon; E55.9 Vitamin D deficiency, unspecified; E03.9 Hypothyroidism, unspecified; E78.2 Mixed hyperlipidemia; E11.65 Type 2 diabetes mellitus with hyperglycemia; E11.22 Type 2 diabetes mellitus with diabetic chronic kidney disease; I12.9 Hypertensive chronic kidney disease with stage 1 through stage 4 chronic kidney disease, or unspecified chronic kidney disease; N18.1 Chronic kidney disease, stage 1; J31.0 Chronic rhinitis; R80.9 Proteinuria, unspecified; E66.9 Obesity, unspecified; Z68.33 Body mass index [BMI] 33.0-33.9, adult; Z79.4 Long term (current) use of insulin; Z79.85 Long-term (current) use of injectable non-insulin antidiabetic drugs; Z79.84 Long term (current) use of oral hypoglycemic drugs; Z79.899 Other long term (current) drug therapy; Z98.890 Other specified postprocedural states; Z90.5 Acquired absence of kidney; Z87.442 Personal history of urinary calculi; Z86.79 Personal history of other diseases of the circulatory system; Z80.42 Family history of malignant neoplasm of prostate; Z80.49 Family history of malignant neoplasm of other genital organs
CPT/HCPCS: 45385; 88305; J2704; J7120